=== PATIENT | female | born 1975 | race Caucasian/White ===

== ENCOUNTER 2022-06-13 06:19 | Day surgery (SDC) | payer OTHER, SELFPAY ==
[2022-06-08 16:10] VITALS: BMI 22.0
--- NOTE | 2022-06-09 15:45 | MHC.SHP ---
Pre-Procedural Eval Section A Date of Service: 06/09/22 The patient is an INPATIENT: No Changes since office visit: No Cold of Flu in the past 2 weeks, No New Medical Problems, No Changes in Medication and No Patient answered all questions The History & Physical has been completed within 30 days and I have reviewed it.: Yes Section B Chief Complaint: Age-related nuclear cataract, left eye Allergies: Allergies Allergy/AdvReac Type Severity Reaction Status Date / Time nickel AdvReac Unknown Verified 06/09/22 14:31 Plan Diagnosis/Plan: Unchanged I have reviewed the history and physical and performed a pertinent physical examination on my patient. No changes have occurred unless specified. Time Spent With Patient Time: Total time managing care of this patient today ____ minutes.
[2022-06-13 06:35] VITALS: BP 118/72; PULSE 80; RESP 16; TEMP 36.8; O2SAT 95
[2022-06-13 06:43] LABS: UPreg QC Valid YES; Urine Pregnancy NEGATIVE (NEGATIVE)
[2022-06-13] MEDS: Tetracaine HCl/PF 0.5% Oph Sol 4 ML DROPS 1 DROP EYE-LEFT (06:43)
[2022-06-13] MEDS: Cyclopentolate 1 % Ophth Sol 2 ML DRPBTL 1 DROP EYE-LEFT ×3 (06:44→07:00)
[2022-06-13] MEDS: Tropicamide 1 % Ophth Sol 3 ML BTL 1 DROP EYE-LEFT ×3 (06:46→07:02)
[2022-06-13] MEDS: Ketorolac Tromethamine 0.5% Op 5 ML DROPS 1 DROP EYE-LEFT ×3 (06:48→07:04)
[2022-06-13] MEDS: Phenylephrine HCL 2.5% Oph SoL 2 ML BOTTLE 1 DROP EYE-LEFT ×3 (06:50→07:06)
[2022-06-13] MEDS: Lactated Ringers 500 ML 50 ML IV (06:54)
--- NOTE | 2022-06-13 07:00 | PC.NURSE ---
Patient arrived. Preop SaO2 91-95%. Respirations easy and regular, inspiratory wheezing throughout when lungs auscultated. Patient states I am getting over a sinus infection, I am currently taking antibiotics, last taken yesterday . Patient is a daily smoker. Dr. Crystal at bedside and made aware. Nebulizer treatment ordered. Respiratory at bedside. Treatment tolerated well. SaO2 remains 91-95% post treatment, lung sounds clear, dim throughout. No new orders. Okay to proceed with surgery.
--- NOTE | 2022-06-13 07:25 | HO.PNOPHT ---
Ophthalmology Procedure Procedure Date of Service: 06/13/22 Ophthalmology Viscoelastic: Healnahum Duet Dual Pack Pro Ophthalmology Lenses: TECALON [id number] (21) Procedure Notes: PREOPERATIVE DIAGNOSIS: Decreased visual acuity left eye secondary to cataract POSTOPERATIVE DIAGNOSIS: Same PROCEDURE: Left cataract extraction with intraocular lens insertion SURGEON: Terry Snell M.D. ANESTHESIA: Topical/MAC ESTIMATED BLOOD LOSS: None COMPLICATIONS: None After obtaining informed consent, the patient was brought to the operation room suite and placed in the supine position. After adequate sedation per anesthesia, topical drops of Tetracaine were given to the left eye. The eye was then prepped and draped in the usual sterile fashion. The operating room microscope was then positioned over the operative eye and a lid speculum placed. A paracentesis was created. Viscoelastic was then instilled into the anterior chamber. A three plane incision was then created temporally, utilizing a 2.85 mm keratome. Capsulotomy forceps were then utilized to create a circular tear capsulotomy. Hydrodissection and hydrodelineation were carried out until adequate mobilization of the nucleus occurred. Phacoemulsification was then utilized to remove the dense central nucleus followed by removal of the cortical material utilizing the automated aspiration irrigation unit. Viscoat elastic was instilled into the posterior capsular bag followed by placement of a posterior chamber intraocular lens without difficulty. The residual Viscoat elastic was then removed utilizing the automated IA machine. The wound was check and found to be watertight. The patient tolerated the procedure well and the lid speculum was removed. Intracameral injection of Vigamox 0.1 mL followed by a subtenon injection of Kenalog-40 0.2 mL were administered. The patient will be seen in the a.m.
[2022-06-13] MEDS: Albuterol Sulfate (0.083%) 2.5 MG/3 ML VIAL.NEB INHALE (07:26)
[2022-06-13 07:30] VITALS: PULSE 79; RESP 15; O2SAT 93
--- NOTE | 2022-06-13 07:45 | P.CONAN_ITS ---
Documented by User: Mayank Salinas MD 06/13/22 07:47 HPI - Anesthesia Eval Consult details Narrative: Left eye cataract + IOL PMFSH Past Medical History Medical History Anxiety Back pain Bleeds easily Bruises easily Cataract Chronic, continuous use of opioids Depression Hx of skin cancer, basal cell Hx of squamous cell carcinoma of skin Immune hypersensitivity reaction Nausea PONV (postoperative nausea and vomiting) Smoker Family History Family history of problems with anesthesia: No Surgical History Surgical History History of back surgery History of cholecystectomy Hx of tonsillectomy Social History Social History Are you a primary primary care coordinator to a significant other at home: No Do you presently have visiting nurse or other home services: No Alcohol intake: current Alcohol intake frequency: holidays/special occasions only Patient Tobacco Use Status: Current everyday Tobacco user Tobacco use type: Cigarette Cigarette Packs Per Day: 1 Cigarettes Per Day: 20.0 Years Smoked: 14 Smoked in Last 30 Days: Yes Use of substances other than those prescribed or required for medical reasons: No Have you been hit, kicked, punched, or otherwise hurt by someone within the past year? If so, by whom?: No Are you DNR?: No Advance Directives: No Advance Directives Information Provided: Yes Advance Directives on File: No Recently lost weight without trying: No Nutrition Risks: No Nutritional Risk Patient : No FDLMP: unknown : No Poor oral hygiene: No Meds Allergies Allergy/AdvReac Type Severity Reaction Status Date / Time nickel AdvReac Unknown Verified 06/13/22 06:34 Home Medications Medication Instructions Recorded Confirmed Last Taken Type citalopram 10 mg tablet 10 mg PO DAILY 07/16/20 06/13/22 Unknown History lamotrigine 200 mg disintegrating 200 mg PO DAILY 07/16/20 06/13/22 Unknown History tablet omeprazole 20 mg capsule,delayed 20 mg PO DAILY 06/08/22 06/13/22 Unknown History release ondansetron HCl 4 mg tablet 4 mg PO Q8H PRN nausea/vomiting 06/08/22 06/13/22 Unknown History oxycodone 10 mg tablet 10 mg PO QID PRN Pain 06/08/22 06/13/22 06/13/22 05:00 History amoxicillin 875 mg-potassium 1 tab PO BID 06/13/22 06/13/22 06/12/22 History clavulanate 125 mg tablet cetirizine 10 mg tablet 10 mg PO DAILY 06/13/22 06/13/22 Unknown History dextroamphetamine-amphetamine 5 mg 2 tab PO BID 06/13/22 06/13/22 Unknown History tablet fluticasone propionate 50 1 spray intranasal DAILY 06/13/22 06/13/22 Unknown History mcg/actuation nasal spray,suspension Exam Airway Mallampati Class: II TM Dist: >3cm Loose/Missing/Broken Teeth: Yes Heart: RRR +s1s2 Lungs: CTA after treatment Assessment and Plan Assessment Anesthesia Assessment: Anesthesia Plan Discussed and Chart Reviewed Final Anesthetic Review Family History of Problems with Anesthesia: No Assessment/Block/Sedation in SS: Assess/Block/Sedation-SS Anesthetic Plan Anesthetic Plan: Agree w/ Assess. and Plan Documented by User: Evelyn Crystal MD 06/13/22 07:46 [facility] Active Problems Active Problems: All Active Problems (Updated 06/08/22 @ 16:09 by Rose Shaikh RN) Somatic dysfunction of left sacroiliac joint (Acute) Somatic dysfunction of right sacroiliac joint (Acute) Past Medical History Medical History Anxiety Back pain Bleeds easily Bruises easily Cataract Chronic, continuous use of opioids Depression Hx of skin cancer, basal cell Hx of squamous cell carcinoma of skin Immune hypersensitivity reaction Nausea PONV (postoperative nausea and vomiting) Smoker Surgical History Surgical History History of back surgery History of cholecystectomy Hx of tonsillectomy History of Problems with Anesthesia: No Social History Social History Are you a primary primary care coordinator to a significant other at home: No Do you presently have visiting nurse or other home services: No Alcohol intake: current Alcohol intake frequency: holidays/special occasions only Patient Tobacco Use Status: Current everyday Tobacco user Tobacco use type: Cigarette Cigarette Packs Per Day: 1 Cigarettes Per Day: 20.0 Years Smoked: 14 Smoked in Last 30 Days: Yes Use of substances other than those prescribed or required for medical reasons: No Have you been hit, kicked, punched, or otherwise hurt by someone within the past year? If so, by whom?: No Are you DNR?: No Advance Directives: No Advance Directives Information Provided: Yes Advance Directives on File: No Recently lost weight without trying: No Nutrition Risks: No Nutritional Risk Patient : No FDLMP: unknown : No Poor oral hygiene: No Meds Allergies Allergy/AdvReac Type Severity Reaction Status Date / Time nickel AdvReac Unknown Verified 06/13/22 06:34 Active Medications: Current Medications Lactated Ringer's (Lr) 500 mls @ 50 mls/hr IV .Q10H JAZMIN Stop: 06/13/22 16:29 Last Admin: 06/13/22 06:54 Dose: 50 mls/hr Povidone Iodine (Povidone Iodine 5 % [facility] Soln 30 Ml Bottle) 1 appl EYE-LEFT PREOP PRN PRN Reason: Pre-Op Surgical Implant Prophy Home Medications Medication Instructions Recorded Confirmed Last Taken Type citalopram 10 mg tablet 10 mg PO DAILY 07/16/20 06/13/22 Unknown History lamotrigine 200 mg disintegrating 200 mg PO DAILY 07/16/20 06/13/22 Unknown History tablet omeprazole 20 mg capsule,delayed 20 mg PO DAILY 06/08/22 06/13/22 Unknown History release ondansetron HCl 4 mg tablet 4 mg PO Q8H PRN nausea/vomiting 06/08/22 06/13/22 Unknown History oxycodone 10 mg tablet 10 mg PO QID PRN Pain 06/08/22 06/13/22 06/13/22 05:00 History amoxicillin 875 mg-potassium 1 tab PO BID 06/13/22 06/13/22 06/12/22 History clavulanate 125 mg tablet cetirizine 10 mg tablet 10 mg PO DAILY 06/13/22 06/13/22 Unknown History dextroamphetamine-amphetamine 5 mg 2 tab PO BID 06/13/22 06/13/22 Unknown History tablet fluticasone propionate 50 1 spray intranasal DAILY 06/13/22 06/13/22 Unknown History mcg/actuation nasal spray,suspension Exam Exam Date and Time: June 13, 2022 0745 Height,Weight and Vital Signs: Height 5 ft 8 in Weight 65.771 kg Last Vital Signs Temp 98.2 F 06/13/22 06:35 Pulse 79 06/13/22 07:30 Resp 15 06/13/22 07:30 BP 118/72 06/13/22 06:35 Pulse Ox 95 06/13/22 06:35 O2 Del Method Room Air 06/13/22 06:35 Pertinent Lab Results Pertinent Lab Results: Laboratory Tests 06/13/22 06:23 Urine Test NEGATIVE Airway Mallampati Class: II TM Dist: >3cm Neck ROM: Full Loose/Missing/Broken Teeth: No Heart: RRR Lungs: CTA Assessment and Plan Final Anesthetic Review History of Problems with Anesthesia: No NPO: Yes ASA Class: II Final Preanesthetic Review: Meds/Allgs Chart Reviewed, Consent Obtained/Reviewed and Anes Risks/Benef Reviewed Patient Risk: Low Procedure Risk: Low Anesthetic Plan Anesthetic Plan: MAC: Disposition: Standard PACU
[2022-06-13 08:12] VITALS: BP 114/62; PULSE 81; RESP 16; TEMP 36.2; O2SAT 94
[2022-06-13 08:20] VITALS: BP 101/61; PULSE 80; RESP 16; O2SAT 94
== END 2022-06-13 08:47 | disposition home or self-care (01) ==
PROVIDERS: Nurse Practitioner; PCP Internal Medicine; Visit Provider Ophthalmology
PROC: (CPT 66985; principal; 2022-06-13 07:30)
DX: H25.12 Age-related nuclear cataract, left eye (principal); H54.7 Unspecified visual loss; H21.233 Degeneration of iris (pigmentary), bilateral; M79.7 Fibromyalgia; Z79.891 Long term (current) use of opiate analgesic; R23.3 Spontaneous ecchymoses; Z79.51 Long term (current) use of inhaled steroids; Z79.899 Other long term (current) drug therapy; Z85.828 Personal history of other malignant neoplasm of skin; F17.210 Nicotine dependence, cigarettes, uncomplicated; Z98.890 Other specified postprocedural states
CPT/HCPCS: 66984; 81025; 94640; J2250; J3301; V2632

== ENCOUNTER 2022-06-27 06:27 | Day surgery (SDC) | payer OTHER, SELFPAY ==
[2022-06-08 16:17] VITALS: BMI 22.0
--- NOTE | 2022-06-24 08:00 | MHC.SHP ---
Pre-Procedural Eval Section A Date of Service: 06/24/22 The patient is an INPATIENT: No Changes since office visit: No Cold of Flu in the past 2 weeks, No New Medical Problems, No Changes in Medication and No Patient answered all questions The History & Physical has been completed within 30 days and I have reviewed it.: Yes Section B Chief Complaint: Age-related nuclear cataract, right eye Allergies: Allergies Allergy/AdvReac Type Severity Reaction Status Date / Time nickel AdvReac Unknown Verified 06/13/22 06:34 Plan Diagnosis/Plan: Unchanged I have reviewed the history and physical and performed a pertinent physical examination on my patient. No changes have occurred unless specified. Time Spent With Patient Time: Total time managing care of this patient today ____ minutes.
[2022-06-27] MEDS: Phenylephrine HCL 2.5% Oph SoL 2 ML BOTTLE 1 DROP EYE-RIGHT ×3 (06:45→06:57)
[2022-06-27] MEDS: Tropicamide 1 % Ophth Sol 3 ML BTL 1 DROP EYE-RIGHT ×3 (06:45→06:57)
[2022-06-27] MEDS: Ketorolac Tromethamine 0.5% Op 5 ML DROPS 1 DROP EYE-RIGHT ×3 (06:45→06:57)
[2022-06-27] MEDS: Cyclopentolate 1 % Ophth Sol 2 ML DRPBTL 1 DROP EYE-RIGHT ×3 (06:45→06:57)
[2022-06-27] MEDS: Tetracaine HCl/PF 0.5% Oph Sol 4 ML DROPS 1 DROP EYE-RIGHT (06:45)
[2022-06-27] MEDS: Lactated Ringers 500 ML 50 ML IV (06:46)
[2022-06-27 06:47] LABS: UPreg QC Valid YES; Urine Pregnancy NEGATIVE (NEGATIVE)
[2022-06-27 06:53] VITALS: BP 153/75; PULSE 92; RESP 18; TEMP 36.3; O2SAT 97
--- NOTE | 2022-06-27 07:26 | HO.ANESPROP2 ---
[facility] Active Problems Active Problems: All Active Problems (Updated 06/08/22 @ 16:09 by Rose Shaikh RN) Somatic dysfunction of left sacroiliac joint (Acute) Somatic dysfunction of right sacroiliac joint (Acute) Past Medical History Medical History Anxiety Back pain Bleeds easily Bruises easily Cataract Chronic, continuous use of opioids Depression Hx of skin cancer, basal cell Hx of squamous cell carcinoma of skin Immune hypersensitivity reaction Nausea PONV (postoperative nausea and vomiting) Smoker Family History Family history of problems with anesthesia: No Surgical History Surgical History History of back surgery History of cholecystectomy Hx of tonsillectomy History of Problems with Anesthesia: No Social History Social History Are you a primary clinical care leader to a significant other at home: No Do you presently have visiting nurse or other home services: No Alcohol intake: current Alcohol intake frequency: holidays/special occasions only Patient Tobacco Use Status: Current everyday Tobacco user Tobacco use type: Cigarette Cigarette Packs Per Day: 1 Cigarettes Per Day: 20.0 Years Smoked: 14 Smoked in Last 30 Days: Yes Use of substances other than those prescribed or required for medical reasons: No Have you been hit, kicked, punched, or otherwise hurt by someone within the past year? If so, by whom?: No Are you DNR?: No Advance Directives: No Advance Directives Information Provided: Yes Advance Directives on File: No Recently lost weight without trying: No Nutrition Risks: No Nutritional Risk Patient : No FDLMP: unknown : No Poor oral hygiene: No Meds Allergies Allergy/AdvReac Type Severity Reaction Status Date / Time nickel AdvReac Unknown Verified 06/27/22 07:02 Active Medications: Current Medications Albuterol Sulfate (Albuterol Sulfate (0.083%) 2.5 Mg/3 Ml Vial.Neb) 2.5 mg INHALE ONCE PRN PRN Reason: Shortness of Breath/Wheezing Lactated Ringer's (Lr) 500 mls @ 50 mls/hr IV .Q10H JAZMIN Stop: 06/27/22 16:29 Last Admin: 06/27/22 06:46 Dose: 50 mls/hr Povidone Iodine (Povidone Iodine 5 % Ophth Soln 30 Ml Bottle) 1 appl EYE-RIGHT PREOP PRN PRN Reason: Pre-Op Surgical Implant Prophy Home Medications Medication Instructions Recorded Confirmed Last Taken Type citalopram 10 mg tablet 10 mg PO DAILY 07/16/20 06/13/22 Unknown History lamotrigine 200 mg disintegrating 200 mg PO DAILY 07/16/20 06/13/22 Unknown History tablet omeprazole 20 mg capsule,delayed 20 mg PO DAILY 06/08/22 06/13/22 Unknown History release ondansetron HCl 4 mg tablet 4 mg PO Q8H PRN nausea/vomiting 06/08/22 06/13/22 Unknown History oxycodone 10 mg tablet 10 mg PO QID PRN Pain 06/08/22 06/13/22 06/13/22 05:00 History amoxicillin 875 mg-potassium 1 tab PO BID 06/13/22 06/13/22 06/12/22 History clavulanate 125 mg tablet cetirizine 10 mg tablet 10 mg PO DAILY 06/13/22 06/13/22 Unknown History dextroamphetamine-amphetamine 5 mg 2 tab PO BID 06/13/22 06/13/22 Unknown History tablet fluticasone propionate 50 1 spray intranasal DAILY 06/13/22 06/13/22 Unknown History mcg/actuation nasal spray,suspension Exam Exam Date and Time: June 27, 2022 0726 Height,Weight and Vital Signs: Height 5 ft 8 in Weight 65.771 kg Last Vital Signs Temp 97.3 F 06/27/22 06:53 Pulse 92 06/27/22 06:53 Resp 18 06/27/22 06:53 BP 153/75 H 06/27/22 06:53 Pulse Ox 97 06/27/22 06:53 O2 Del Method Room Air 06/27/22 06:53 Pertinent Lab Results Pertinent Lab Results: Laboratory Tests 06/27/22 06:30 Urine Test NEGATIVE Airway Mallampati Class: II TM Dist: >3cm Neck ROM: Full Loose/Missing/Broken Teeth: No Heart: RRR Lungs: CTA Assessment and Plan Assessment Anesthesia Assessment: Anesthesia Plan Discussed and Chart Reviewed Final Anesthetic Review Family History of Problems with Anesthesia: No History of Problems with Anesthesia: No NPO: Yes ASA Class: II Final Preanesthetic Review: Meds/Allgs Chart Reviewed, Consent Obtained/Reviewed and Anes Risks/Benef Reviewed Patient Risk: Low Procedure Risk: Low Anesthetic Plan Anesthetic Plan: MAC: Disposition: Standard PACU
--- NOTE | 2022-06-27 08:01 | P.PCNO_ITS ---
Ophthalmology Procedure Procedure Date of Service: 06/27/22 Ophthalmology Viscoelastic: Healon Duet Dual Pack Pro Ophthalmology Lenses: TECNIS [id number] (21) Procedure Notes: PREOPERATIVE DIAGNOSIS: Decreased visual acuity right eye secondary to cataract POSTOPERATIVE DIAGNOSIS: Same PROCEDURE: Right cataract extraction with multifocal intraocular lens insertion SURGEON: Terry Senll M.D. ANESTHESIA: Topical/MAC ESTIMATED BLOOD LOSS: None COMPLICATIONS: None After obtaining informed consent, the patient was brought to the operating room suite and placed in the supine position. After adequate sedation per anesthesia, topical drops of Tetracaine were given to the right eye. The eye was then prepped and draped in the usual sterile fashion. The operating room microscope was then positioned over the operative eye and a lid speculum placed. A paracentesis was created. Viscoelastic was then instilled into the anterior chamber. A three plane incision was then created temporally, utilizing a 2.85 mm keratome. Capsulotomy forceps were then utilized to create a circular tear capsulotomy. Hydrodissection and hydrodelineation were carried out until adequate mobilization of the nucleus occurred. Phacoemulsification was then utilized to remove the dense central nucl eus followed by removal of the cortical material utilizing the automated aspiration irrigation unit. Viscoelastic was instilled into the posterior capsular bag followed by placement of a multifocal posterior chamber intraocular lens without difficulty. The residual Viscoelastic was then removed utilizing the automated IA machine. The wound was checked and found to be watertight. The patient tolerated the procedure well and the lid speculum was removed. Intracameral injection of Vigamox 0.1 mL followed by a subtenon injection of Kenalog-40 0.2 mL were administered. The patient will be seen in the a.m.
[2022-06-27 08:31] VITALS: BP 154/77; PULSE 75; RESP 18; TEMP 36.6; O2SAT 98
== END 2022-06-27 08:38 | disposition home or self-care (01) ==
PROVIDERS: Nurse Practitioner; PCP Internal Medicine; Visit Provider Ophthalmology
PROC: (CPT 66984; principal; 2022-06-27 08:00)
DX: H25.041 Posterior subcapsular polar age-related cataract, right eye (principal); H54.7 Unspecified visual loss; H21.233 Degeneration of iris (pigmentary), bilateral; M79.7 Fibromyalgia; F17.210 Nicotine dependence, cigarettes, uncomplicated; Z79.899 Other long term (current) drug therapy
CPT/HCPCS: 66984; 81025; J2250; J3010; J3301; V2788

== ENCOUNTER 2024-01-09 09:09 | Outpatient (AMB) | payer OTHER, SELFPAY ==
[2024-01-09 09:20] VITALS: BP 122/68; PULSE 97; O2SAT 98; BMI 26.5
--- NOTE | 2024-01-09 09:20 | A.OFFVIS_ITS ---
Vital Signs 01/09/24 09:20 Height 5 ft 8 in Weight 174 lb 2.643 oz BMI 26.5 BP 122/68 Blood Pressure Location Lt brachial Position Sitting Pulse 97 Pulse Source Pulse Oximeter Pulse Oximetry (%) 98 Oxygen Delivery Method Room Air Intake Visit Reasons: Sarcoid arthritis/MR RECIEVED Intake Note: Patient presents today for sarcoid arthritis. Patient was last seen on 12/07/23 by Shankar Lindsay at the [facility]. Allergies citalopram [From Celexa] Allergy (Unknown, Unverified 01/08/24 10:33) Hives nickel Adverse Reaction (Verified 01/08/24 10:33) Unknown HPI Comments Details: Inflectra has not improved pain in her joints: ankles, feet, hips. Last I nflectra dose was a week ago. She has not had as many flares of joint swelling as she has in the past. She reports that her pain is the same. She is on Inflectra 3 milligram/kilogram every 4 weeks. She denies recent infections. She received a prednisone course when she saw Dr. Rodriguez She recently had an episode of joint swelling in her ankles causing excruciating pain. She reports that this coincides with starting losartan. She called her PCP and did not receive a call back. Her mother gave her Lasix, which she took 20 mg for 2 days without benefit. Then she increase the dose to 40 mg twice a day with resolution of joint swelling and pain subsiding to her baseline ankle pain. She is experiencing pain secondary to right trochanteric bursitis, which she has had for 4 years.. She is due for cortisone injection from [facility] in 2 weeks. She has been getting cortisone injections for 4 years but the benefit is not lasting as long. Pain from trochanteric bursitis is preventing patient from sitting, lying down and standing for prolonged periods of time. She has uncontrolled pain when she sitting for more than 15 minutes limiting her function. She has history of lumbar degenerative joint disease requiring fusion in 1993. She also had a spinal stimulator in 05/10/2019. She is unable to stand for prolonged periods of time due to uncontrolled back pain. She has difficulty with functioning due to overall uncontrolled pain. She has been experiencing easily bruising. PCP is working with patient on psychiatric medication management, which has resulted in drug-induced bruising in the past. [facility] reviewed. Rheumatology history: History of diagnosis of polyarthritis previously treated by Dr. Callahan and failed treatment with methotrexate, Enbrel and Humira. She was diagnosed with sarcoidosis with lung involvement and continues to have inflammatory arthritis mainly involving joint swelling in bilateral knees, ankles and feet. Clinical picture of inflammatory arthritis can represent sarcoid related arthropathy. She was started on Inflectra 2023. She has history of steatohepatitis with transaminitis. She has history of fibromyalgia on gabapentin. PFSH Medical History Anxiety Back pain Bleeds easily Bruises easily Cataract Chronic, continuous use of opioids Depression Hx of skin cancer, basal cell Hx of squamous cell carcinoma of skin Immune hypersensitivity reaction Nausea PONV (postoperative nausea and vomiting) Smoker Surgical History History of back surgery History of cholecystectomy Hx of tonsillectomy Social History Are you a primary vehicle care specialist to a significant other at home: No Do you presently have visiting nurse or other home services: No Alcohol intake: current Alcohol intake frequency: holidays/special occasions only Patient Tobacco Use Status: Current everyday Tobacco user Tobacco use type: Cigarette Cigarette Packs Per Day: 1 Cigarettes Per Day: 20.0 Years Smoked: 14 Review of Systems Const All systems reviewed & are unremarkable except as noted in HPI and below Physical Exam Vital Signs: Last Vital Signs Pulse 97 01/09/24 09:20 BP 122/68 01/09/24 09:20 Pulse Ox 98 01/09/24 09:20 Oxygen Delivery Method Room Air 01/09/24 09:20 BMI result Body Mass Index 26.5 Resp Effort & Inspection: normal respiratory effort Cardio Rate: regular rate Rhythm: regular rhythm Heart sounds: S1 normal heart sound present and S2 normal heart sound present Skin Other: Bruising present on arms Extrem Other: Diffuse allodynia Tender to palpate bilateral ankles, MTPs, knees, small joints and hands. She has swelling of bilateral knees. Results Reviewed Results Reviewed: 06/10/2023, 07/28/2023 reviewed Assessment & Plan Assessment & Plan (1) Sarcoid arthritis: Comment: Synovitis has improved on Inflectra but pain is uncontrolled. She is also experiencing concurrent pain from fibromyalgia, which needs to be better controlled. Code(s): D86.86 - Sarcoid arthropathy Category: Medical Plan: Increase Inflectra to 5 milligram/kilogram every 4 weeks Labs ordered for drug and disease monitoring Return to clinic in 3 months (2) Other detention (current) drug therapy: Comment: See above Code(s): Z79.899 - Other detention (current) drug therapy Category: Medical Plan: See above (3) Fibromyalgia: Comment: Uncontrolled on gabapentin 300 mg q.day. Code(s): M79.7 - Fibromyalgia Category: Medical Plan: Recommend PCP follow-up for better management of gabapentin with up titration as she tolerates. Consider adjunct therapy with cyclobenzaprine or amitriptyline Contraindication to oral NSAIDs due to bruising Contraindication to Tylenol due to transaminitis Plan . 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 therapy Alanine Aminotransferase Today D86.86 - Sarcoid arthropathy, Z79.899 - Other longwall machine operator helper (current) drug therapy Aspartate Amino Transferase Today D86.86 - Sarcoid arthropathy, Z79.899 - Other longwall machine operator helper (current) drug therapy C Reactive Protein Today D86.86 - Sarcoid arthropathy, Z79.899 - Other detention (current) drug therapy Complete Blood Count Auto Diff Today D86.86 - Sarcoid arthropathy, Z79.899 - Other longwall machine operator helper (current) drug therapy Hepatitis B,C Profile Today D86.86 - Sarcoid arthropathy, Z79.899 - Other detention (current) drug therapy Referrals Infusion Center Notification D86.86 - Sarcoid arthropathy Coding Level of Care Code Est Pt Level 4 (30280) Complex EM visit Add On G2211 Diagnoses Sarcoid arthritis D86.86 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
== END 2024-01-09 10:09 | disposition home or self-care (01) ==
PROVIDERS: PCP Internal Medicine; Visit Provider Internal Medicine Rheumatology
DX: D86.86 Sarcoid arthropathy (principal); Z79.899 Other long term (current) drug therapy; M79.7 Fibromyalgia
CPT/HCPCS: 99214

== ENCOUNTER 2024-04-10 09:31 | Outpatient (AMB) | payer OTHER, SELFPAY ==
--- OUTSIDE RECORDS SUMMARY | 2024-04-10 09:49 | XMS_ITS | Continuity of Care Document ---
Author Organization [place] - [facility] 3rd floor Address [address] [place] [address] Care Team Providers Care Grappler Name Role Phone CAROLYN HERNÁNDEZ Primary Care Provider [phone] Assessment No assessment recorded. Plan of Treatment Reminders Order Date Submit Date Provider Last Modified By Organization Details Last Modified Time Details Appointments RECHECK 15 2024 08:45A M Twan Serna MD Not available Not available Not available INJECTION ONLY 15 2024 03:15P Lauren saldivar PA-C Not available Not available Not available Lab None recorded. Referral None recorded. Procedures nerve conductio n study/EMG , lower extremity (PROC) - BLE 2024 [address]25 [place] [address] [facility], [address] [place] [address], [address], 03/27/2024 16:54:26 Surgeries None recorded. Imaging MRI, pelvis, w/wo contrast - MRI pelvis with and without contrast -hx of fusion - eval SI joint [address] [facility]), [address], [place], [address], 03/27/2024 16:54:26 XR, lumbar spine, 2 view - 317 l spine 2v 2024 025 [place] [address] [facility], [address], [place], [address], 03/27/2024 16:54:26 Medication Orders oxycodone 5 mg tablet 2024 025 [id number], [address] [facility], [place], [address], 03/27/2024 16:03:42 Patient TargetsNo targets recorded. Patient InstructionsNo instructions recorded. Reason for Referral None Reported. Results Created Date Observation Date Name Description Value Unit Range Abnormal Flag Note LastModifiedBy Organization Detail LastModifiedTime 03/10/1903/09/2024 MRI, lumba r spine , w/wo contr ast [facility] Access ion Number : [id number] Patien t Name: Yasmany Trotter Medica l Record Number : [id number] Date of : 1975 Date of Exam: 2024 Referr ing Physic amador: [facility] [address], [address] [facility], [facility] [address] Exam: MR Lumbar Spine (C-/C+ ) CPT 12243 Room Descri ption: [facility] Verio 3.0T MRI of the lumbar spine withou t and with contra st. HISTOR Y: Bilate ral arm and leg pain. Bilate ral leg parest hesia. Status post prior lumbar fusion surger y. COMPAR BERNARDO: 022. FINDIN GS: The conus medull iman has a normal calibe r and signal intens ities. It termin ates at L1-L2 level. No abnorm al enhanc ement There is a minima l marcia listhe sis of L5 over S1. No verteb ral body fractu re is seen. The bone marrow signal s are within normal limits . L4-L5 and L5-S1 levels have disc desicc ation and disc space narrow ing. The parasp inal muscle s from L4-L5 level to visual ized upper sacral region appear absent with fatty replac ement which are due to postsu rgical change s. T12-L1 level has a tiny right parace ntral disc protru rishi. No stenos is or neural forame n narrow ing. L1-L2 level has no disc hernia tion, stenos is or neural forame n narrow ing. Bilate ral facet joints are mildly degene rative . L2-L3 level has no disc hernia tion, stenos is or neural forame n narrow ing. Bilate ral facet joints are mildly degene rative . L3-L4 level has a minima l disc bulge causin g minima l stenos is. No nerve root compre ssion. Bilate ral ligame ntum flavum are mildly hypert rophic . The facet joints are mildly degene rative . No neural forame n narrow ing. Bilate ral parasp inal muscle s are partia lly atroph ic with fatty replac ement. 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 L4-L5 and L5-S1 levels had prior bilate ral ely ctomie s with decomp ressio n of the spinal canal. No signif icant ventra l epidur al enhanc ing scar. No disc hernia tion, stenos is or nerve root compre ssion. Bilate ral facet joints are degrad ed by suscep tibili ty artifa cts due to surgic al hardwa re from prior fusion surger y. No neural forame n narrow ing. The visual ized abdomi nal aorta and kidney s are unrema rkable . IMPRES RISHI: Product Responsibility Liaison ior surgic al change s at the lower lumbar spine as descri bed above. The findin gs remain unchan ged since prior study. Electr onical ly Signed By: Eugene Avalos MD [email or web address] [facility] ([facility]) [address] [facility], [place], [address], 03/29/2024 08:32:02 03/27/19 25 03/27/2024 XR, lumba r spine , 2 view [email or web address]:/ [email or web address] ?Encry pted=s hAaTro YD8dLq bEUv6g %2BXZw aYqtaq 0bqfl% 2Fg9IQ a4ajBk vP9nXo QUaueC m3YtLR FvZlgJ JJ8mAn HZtai3 8p4419 AC0Kqb HmNWKK vKiQtr MwF INTERFACE [facility] [address], [place], [address], 03/27/2024 15:22:53 03/27/1903/27/2024 XR, lumba r spine , 2 view [email or web address]:/ [email or web address] ?Encry pted=s hAaTro YD8dLq bEUv6g %2BXZw aYqtaq 0bqfl% 2Fg9IQ a4ajBk vP9nXo QUaueC m3YtLR FvZlgJ JJ8mAn HZtai3 4v9333 AC0Kqb HmNWKK vKiQtr MwF INTERFACE [facility] [address], [place], [address], 03/27/2024 15:22:55 Result Notes None recorded. Problems Name Problem SNOMED Code Status Onset Date Resolution Date Notes Provider Name and Address Organization Details Recorded Time No complaints 053221793 Active Status : 'A'; Not Available [facility] 4 09:21:35 Bilateral chronic pain of upper limbs 0676833120894 9106 Active 2024 Mary Ann Montanez PA-C [address], [place], [address] , [facility] 5 16:27:55 Partial thickness rotator cuff tear 977746202 Active 2023 Mary Ann Montanez PA-C [address], [place], [address] , [facility] 4 14:12:34 Pain of joint of knee 5596352544 Active 2023 PRIMITIVO franklin [place] - [facility] 4 12:46:40 Trochanter ic bursitis of right hip 9123842535073 00 Active 2023 Ankit France PA-C [address], [place], [address] , [facility] 4 09:54:58 Trochanter ic bursitis of left hip 5753949307690 03 Active 2023 Ankit France PA-C [address] [facility], [place], [address] , [facility] 09:55:03 Problem Notes None recorded. Procedures Surgical History Date Name Laterality Status Provider Name and Address Organization Details Recorded Time 03/06/19 25 JZHip Inj Fernandez completed Ankit France PA-C [address], [place], [address], [facility] 03/06/2024 08:49:50 03/04/19 25 Sports Shoulder Bilateral completed Mary Ann Montanez PA-C [address], [place], [address], [facility] 03/20/2024 10:42:32 01/22/20 24 JZHip Fernandez completed Ankit France PA-C [address], [place], [address], [facility] 01/22/2024 09:35:30 11/21/19 24 Shoulder Kenalog 2cc Injection, Bilateral completed Mary Ann Montanez PA-C [address], [place], [address], [facility] 11/21/2023 14:09:51 11/15/19 24 JZHip Inj Fernandez active Ankit France PA-C [address], [place], [address], [facility] 11/15/2023 12:13:53 11/02/19 24 JZHip US Fernandez completed Ankit France PA-C [address], [place], [address], [facility] 11/02/2023 13:50:21 09/05/19 24 JZHip US Fernandez completed Ankit France PA-C [address], [place], [address], [facility] 09/05/2023 14:48:49 09/04/19 24 Knee Kenalog 40 1cc Injection, Bilateral completed Mary Ann Montanez PA-C [address], [place], [address], [facility] 09/04/2023 14:55:12 08/22/19 24 Shoulder Kenalog 2cc Injection, Bilateral completed Mary Ann Montanez PA-C [address], [place], [address], [facility] 08/22/2023 13:50:04 06/15/19 24 JZHip Inj Fernandez completed Ankit France PA-C [address], [place], [address], [facility] 06/15/2023 09:54:49 05/23/19 24 Knee Kenalog 40 1cc Injection, Bilateral completed Mary Ann Montanez PA-C [address], [place], [address], [facility] 05/23/2023 13:34:03 05/09/19 24 Large Joint Asp/Inj, Bilateral Kenalog 1cc completed Mary Ann Montanez PA-C [address], [place], [address], [facility] 05/09/2023 14:15:23 Spine Surgery completed PRIMITIVO EATON [facility] 03/04/2024 16:05:54 lumbar spinal fusion completed PRIMITIVO EATON [facility] 05/09/2023 08:27:21 removal of implant completed PRIMITIVO EATON [facility] 05/09/2023 08:27:49 removal of spinal neurostimulator completed PRIMITIVO EATON [facility] 05/09/2023 08:28:16 implantation of neurostimulator in spine completed PRIMITIVO EATON [facility] 05/09/2023 08:28:56 cataract surgery completed PRIMITIVO EATON [facility] 05/09/2023 11:32:40 Imaging Results None recorded. Procedure Notes None recorded. Medical Equipment None Reported. Allergies Allergen ID Allergen Name Allergen Category Reaction Reaction Severity Criticality Documentation Date Start Date Code Code System Note Provider Name and Address Organization Details Recorded Time 680559 nickel environme nt,medica tion Not available Not available Not available 04/24/20232021 51022 29 RxNorm Not Available [facility] 16:01:34 Medications Name Sig Start Date Stop Date Status Note LastModified by Organization Details LastModified Time losartan 50 mg tablet TAKE 1 TABLET BY MOUTH EVERY DAY active Not Available Not Available No t Available nystatin 100,000 unit/mL oral suspension SWISH AND SWALLOW 5 ML BY MOUTH 4 TIMES A DAY,X7 DAYS 08/21 completed Not Available Not Available Not Available venlafaxine ER 37.5 mg capsule,ext ended release 24 hr TAKE 1 CAPSULE BY MOUTH EVERY DAY 08/21 completed Not Available Not Available Not Available prednisone 10 mg tablet PLEASE SEE ATTACHED FOR DETAILED DIRECTION S 03/27 completed Not Available Not Available Not Available paroxetine 10 mg tablet TAKE 1 TABLET BY MOUTH EVERY DAY 02/07 completed Not Available Not Available Not Available nicotine 14 mg/24 hr daily transdermal patch APPLY 1 PATCH TOPICALLY DAILY 08/21 completed Not Available Not Available Not Available cetirizine 10 mg tablet TAKE 1 TABLET BY MOUTH EVERY DAY 08/21 completed Not Available Not Available Not Available nicotine (polacrilex ) 2 mg gum CHEW 1 GUM EVERY 4 HOURS NEEDED FOR SMOKING CESSATION 08/21 completed Not Available Not Available Not Available tizanidine 4 mg tablet TAKE 1 TABLET BY MOUTH THREE TIMES A DAY 01/18 completed Not Available Not Available Not Available citalopram 10 mg tablet TAKE 1 TABLET BY MOUTH EVERY DAY 08/21 completed Not Available Not Available Not Available senna 8.6 mg tablet 08/21 completed Not Available Not Available Not Available meloxicam 15 mg tablet TAKE 1 TABLET BY MOUTH EVERY DAY 08/21 completed Not Available Not Available Not Available ondansetron HCl 4 mg tablet TAKE 1 TABLET BY MOUTH EVERY 8 HOURS NEEDED FOR NAUSEA AND VOMITING active Not Available Not Available No t Available prednisone 20 mg tablet active Not Available Not Available Not Available prednisone 5 mg tablet PLEASE SEE ATTACHED FOR DETAILED DIRECTION S 03/27 completed Not Available Not Available Not Available Remicade 100 mg intravenous solution Inject by intraveno us route. 03/27 completed Not Available Not Available Not Available omeprazole 40 mg capsule,del ayed release TAKE 1 CAPSULE BY MOUTH EVERY DAY active Not Available Not Available No t Available aspirin 81 mg tablet,julieta yed release 08/21 completed Not Available Not Available Not Available triamcinolo ne acetonide 0.1 % topical cream APPLY TWICE A DAY TO RASH ON EXTREMITI ES FOR 2 WEEKS, TAKE 1 WEEK OFF, REPEAT NEEDED 08/21 completed Not Available Not Available Not Available oxycodone 15 mg tablet TAKE 1 TABLET BY MOUTH EVERY 6 HOURS NEEDED FOR PAIN active Not Available Not Available No t Available Kenalog 40 mg/mL suspension for injection Take 1 mL by injection route. 08/21 completed Not Available Not Available Not Available hydromorpho ne 2 mg tablet 08/21 completed Not Available Not Available Not Available citalopram 20 mg tablet TAKE 1 TABLET BY MOUTH EVERY DAY 08/21 completed Not Available Not Available Not Available amitriptyli ne 10 mg tablet TAKE 1 TABLET BY MOUTH EVERYDAY AT BEDTIME 01/18 completed Not Available Not Available Not Available paroxetine 20 mg tablet TAKE 1 TABLET BY MOUTH EVERY DAY 02/07 completed Not Available Not Available Not Available pseudoephed rine-guaife nesin ER 80-700 mg tablet,exte nded release 1-[address] painDO NOT DRIVE WHILE TAKING THIS MEDICATIO N 05/04 completed Statu s: 'Disc ontin ued'; Not Available Not Available Not Available prednisone 50 mg tablet TAKE 1 TABLET BY MOUTH EVERY DAY FOR 5 DAYS 08/21 completed Not Available Not Available Not Available losartan 25 mg tablet TAKE 1 TABLET BY MOUTH EVERY DAY 02/07 completed Not Available Not Available Not Available venlafaxine 50 mg tablet TAKE 1 TABLET BY MOUTH EVERY DAY 01/18 completed Not Available Not Available Not Available gabapentin 300 mg capsule TAKE 1 CAPSULE BY MOUTH TWICE A DAY active Not Available Not Available No t Available sertraline 25 mg tablet TAKE 1 TABLET BY MOUTH EVERY DAY 08/21 completed Not Available Not Available Not Available diclofenac sodium 75 mg tablet,julieta yed release Take 1 tablet twice a day by oral route for 30 days. 01/18 completed Not Available Not Available Not Available gabapentin 100 mg capsule TAKE 1 TAB AT BEDTIME X1 WEEK THEN INCREASE TO 1 TAB TWICE A DAY X 1 WEEK THEN 1 TAB 3X A DAY 02/07 completed Not Available Not Available Not Available lorazepam 1 mg tablet TAKE 1 TABLET BY MOUTH ONCE 30-60 MINUTES PRIOR TO PET/CT 08/21 completed Not Available Not Available Not Available levofloxaci n 500 mg tablet TAKE 1 TABLET BY MOUTH EVERY 24 HOURS FOR 4 DAYS 01/18 completed Not Available Not Available Not Available methylpredn isolone 4 mg tablets in a dose pack TAKE 6 TABLETS ON DAY 1 DIRECTED ON PACKAGE AND DECREASE BY 1 TAB EACH DAY FOR A TOTAL OF 6 DAYS 08/21 completed Not Available Not Available Not Available albuterol sulfate HFA 90 mcg/actuati on aerosol inhaler active Not Available Not Available Not Available fluticasone propionate 50 mcg/actuati on nasal spray,suspe nsion SPRAY 2 SPRAYS INTRANASA LLY DAILY FOR 10 DAYS 08/21 completed Not Available Not Available Not Available dextroamphe tamine-amph etamine 5 mg tablet TAKE 2 TABLETS BY MOUTH TWICE A DAY FOR 28 DAYS active Not Available Not Available No t Available amoxicillin 875 mg-potassiu m clavulanate 125 mg tablet TAKE 1 TABLET BY MOUTH TWICE A DAY FOR 7 DAYS 03/27 completed Not Available Not Available Not Available oxycodone 5 mg tablet TAKE 1 TABLET EVERY 6 HOURS BY ORAL ROUTE WITH MEAL(S) FOR 7 DAYS, FOR BREAKTHRO UGH PAIN AFTER FALL. active Not Available Not Available No t Available hydroxyzine pamoate 25 mg capsule TAKE 1 CAPSULE BY MOUTH 4 TIMES A DAY NEEDED FOR ANXIETY 02/07 completed Not Available Not Available Not Available neomycin 3.5 mg/g-polymy mignon B 10,000 unit/g-dexa meth 0.1 % eye oint APPLY 1/4 INCH STRIP TO LEFT EYE THREE TIMES A DAY FOR 5-7 DAYS 08/21 completed Not Available Not Available Not Available bupropion HCl XL 150 mg 24 hr tablet, extended release TAKE 1 TABLET BY MOUTH EVERY 24 HOURS 08/21 completed Not Available Not Available Not Available duloxetine 20 mg capsule,del ayed release TAKE 1 CAPSULE BY MOUTH TWICE A DAY 01/18 completed Not Available Not Available Not Available meloxicam 01/18 completed Not Available Not Available Not Available oxycodone 10 mg tablet TAKE 1 TABLET BY MOUTH EVERY 6 HOURS, NEEDED FOR PAIN 02/07 completed Not Available Not Available Not Available oxycodone HCl-oxycodo ne-ASA oxyCODONE HCl 5MG Tablet 05/04 completed Statu s: 'Disc ontin ued'; Not Available Not Available Not Available lamotrigine ER 200 mg tablet,exte nded release 24 hr TAKE 1 TABLET BY MOUTH EVERY DAY active Not Available Not Available No t Available GaviLyte-G 236 gram-22.74 gram-6.74 gram-5.86 gram oral solution DRINK 1ST HALF AT 5PM EVENING BEFORE AND 2ND HALF 6 HOURS BEFORE PROCEDURE , 240ML EVERY 15 MINUTES 03/27 completed Not Available Not Available Not Available Vitals Date Recorded Body height Body mass index (BMI) Body weight Provider Name and Address Organization Details Last Updated DateTime 03/27/2024 172.72 cm 24.3 kg/m2 73568.78 g Felecia garcia [facility] 03/27/2024 15:17:16 Social History Question Answer Notes LastModified by Organizat ion Details LastModified Time Tobacco Smoking Status Current Every Day Smoker PRIMITIVO franklin [facility] 05/09/2023 08:27:10 What Is Your Level Of Alcohol Consumption? Occasional Information not available 05/09/2023 Do You Use Any Illicit Or Recreational Drugs? No [email or web address] Information not available 05/09/2023 Do You Or Have You Ever Used Any Other Forms Of Tobacco Or Nicotine? No [email or web address] Information not available 05/09/2023 Sex: Unknown Functional Status None recorded. Mental Status None recorded. Family History Relationship Description Onset Age of this Age Resolved Age Notes LastModified by Organization Details LastModified Time Father Malignant tumor of colon [email or web address] Not available 2023 08:26:28 Father Type 2 diabetes mellitus [email or web address] Not available 2023 08:26:48 Medical History Condition Response Anxiety/Depression Y Arthritis Y Acid Reflux (GERD) Y Gynecological HistoryNo gynecological history recorded. Obstetrics History GPAL:G 0 P 0 0 0 0 Past Encounters Encounter ID Performer Location Encounter Start Date Encounter Closed Date Diagnosis/Indication Diagnosis SNOMED-CT Code Diagnosis ICD10 Code Diagnosis Note [id number] Mary Ann Montanez PA-C [facility] [address] [place] [address] 03/04/2024 16:01:22 03/20/2024 11:28:20 Bilateral chronic pain of upper limbs 9634928383 7329923 M25.511 M25.512 G89.29 [id number] Ankit France PA-C [facility] [address] [place] [address] 03/06/2024 08:12:14 03/18/2024 11:21:09 Trochanteric bursitis of left hip 1458754198 27450 M70.62 Trochanter ic bursitis of right hip 6629687784 58046 M70.61 Lumbar spondylosis 32562 0009 M47.431 [id number] Kandy Davies, SYSTEM OPERATOR [facility] [address] [place] [address] 03/27/2024 15:07:52 03/27/2024 18:05:32 Low back pain 573135320 M54.59 Lumbar radiculopathy 128 841059 M54.16 Health Concerns Section Related Observation LastModified by Organization Detai ls LastModified Time None Recorded Concern Status LastModified by Organization Details LastModified Time None Recorded Payers Encounter Date Sequence Insurance Name Policy Number Policy De Paz Covered Member ID De Paz Member ID Guarantor Name 03/27/2024 1 [facility] Ankit Soto Leakey [id number] Edwige Williamson Notes Date Note Type Note Provider Name and Address Organization Details Recorded Time 03/27/2024 text/html I am seeing the patient under the general supervision of Dr. Rosa who was available but who did not see the patient. HPI: 48-year-old female with postlaminectomy syndrome status post implant and explantation of a spinal cord stimulator. Has developed sarcoidosis. Treated elsewhere and heading to [place] for further care. Applying for SSI. Getting infusion care presently. Interested in help with her SSI application. 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 Last saw Dr. Serna 02/08/2024. Also sees Bhupinder France and recently had bilateral greater trochanter bursitis injections on 03/06/2024, which helped hips a little. Bhupinder also ordered a lumbar spine MRI, which she is here to review. She reports severe pain all over after a fall on black ice 03/22/2024. Has swelling in her low back musculature/soft tissues and down posterior legs. No new BB or saddle anesthesia. PFMSH and ROS have been reviewed, updated, and it is located in the patient's chart. PRIOR TREATMENTS/MEDICATION S: oxycodone WORK STATUS: MSK EXAM: examination of the lumbar spineInspection:--- generalized edema and faint redness to soft tissues/muscles bilateral lower back and posterior thighs.ROM:--- Lumbar spine: 70% normalLower extremity strength:--- LLE 5/5--- RLE 5/5Neurologic:--- Positive sensation to light moving touch IMAGING: X rays ordered, obtained, and independently reviewed at [facility] today. 2 views lumbar spine reveals diffuse spondylosis. Facet arthropathy and thin bone quality.- MRI lumbar spine dated 03/09/2024 independently reviewed by myself today reveals diffuse degenerative changes. Multiple levels with minimal disc bulges without significant stenosis. Post-surgical changes L3-L4 L4-L5 L5-S1 no significant disc herniation, canal stenosis, foraminal stenosis, or nerve compression. Relatively unchanged compared to prior study per radiologist. IMPRESSION & PLAN: Findings discussed with the patient today.- lumbar spine MRI overall unremarkable and non-surgical.- ordered MRI pelvis to further evaluate SI joints due to patient's concern and symptoms.- EMG BLE at [facility] ordered to further evaluate leg symptoms, not fully explained by MRI- She is on chronic oxycodone from PCP. Reports pain is severe and debilitating, PCP has not gotten back to her about increasing it. She is tearful. Will send one-time oxycodone for breakthrough pain.- she is currently on prednisone course.- recommended follow up with her regulator operator regarding sarcoidosis and her severe pain that seems out of proportion to a fall, and a relatively negative MRI. FOLLOW UP: as scheduled with Dr. Srena 04/17/2024 Speech recognition tennis racket repairer software was used to create portions of this document. An attempt at proofreading has been made to minimize errors. Please call for corrections. Kandy Davies, SYSTEM OPERATOR [address] [facility] [address], [place], [address], [facility] [place] 03/27/2024 18:05:30 OBGyn Episode No OBEpisode recorded.
--- OUTSIDE RECORDS SUMMARY | 2024-04-10 09:49 | XMS_ITS ---
Author Name [facility] Organization Unknown History of Medication Use Medication Directions Dispensed Refills Start Date End Date Stat us oxyCODONE (ROXICODONE) 10 mg immediate release tablet TAKE 1 TABLET BY MOUTH EVERY 6 HOURS FOR 28 DAYS NEEDED FOR MODERATE PAIN 07/07/2022 active ibuprofen (MOTRIN) 200 MG tablet Take 4 tablets (800 mg total) by mouth 2 (two) times a day as needed for mild pain. active amphetamine-dextroam phetamine (ADDERALL) 5 MG tablet 2 (two) times a day. 07/07/2022 active HYDROmorphone (DILAUDID) 2 MG tablet Take 1-2 tablets (2-4 mg total) by mouth Every 4 (four) to 6 (six) hours as needed for severe pain. Max Daily Amount: 24 mg 08/16/2022 08/17/2022 aborted ondansetron (ZOFRAN) 4 MG tablet Take 1 tablet (4 mg total) by mouth. 08/05/2022 active aspirin enteric coated (ECOTRIN LOW STRENGTH) 81 MG EC tablet Take 1 tablet (81 mg total) by mouth 2 (two) times a day. Do not start before August 17, 2022. 08/17/2022 active OMEprazole (PriLOSEC) 20 MG capsule Take 1 capsule (20 mg total) by mouth every morning before breakfast. active Problems Problem Status Onset Date Problem Type Date of Resolution Source Tobacco use active 2022-08-04 ProblemAct [facility] Mechanical complication of orthopedic internal fixation device active 2022-08-03 ProblemAct [facility] Midline low back pain without sciatica, unspecified chronicity active EncounterDiagnosisAct [facility] Post traumatic stress disorder (PTSD) active 2022-08-04 ProblemAct [facility] Other mechanical complication of internal fixation device of vertebrae, subsequent encounter active 2022-08-16 ProblemAct [facility] Nicotine dependence active 2022-08-03 ProblemAct [facility] Pain active EncounterDiagnosisAct [facility] Hyperlipidemia active 2022-08-[address] ADHD (attention deficit hyperactivity disorder) active 2022-08-04 ProblemAct [facility] Alcohol use active 2022-08-05 ProblemAct [facility] Allergy to metal active 2022-08-04 ProblemAct [facility] Basal cell carcinoma active 2022-08-04 ProblemAct [facility]
--- OUTSIDE RECORDS SUMMARY | 2024-04-10 09:49 | XMS_ITS | Clinical Summary ---
Author Organization [facility] Address [address] [place] [address] Care Team Providers Care Sampler Radioactive Waste Name Role Phone Liliane Benitez MD Primary Care Provider [phone] Soham Zamarripa MD Unavailable [phone] Allergies Active Allergy Reactions Criticality Noted Date Comments Nickel Rash/Dermatitis Low 08/01/2022 Blisters, severe pain Medications Medication Sig Dispensed Refills Start Date End Date Status lamoTRIgine ER 200 MG Tablet SR 24 hr Take 1 tablet by mouth every morning. 07/08/2022 Active amphetamine-dextroamph etamine (ADDERALL) 5 MG tablet 2 (two) times a day. 07/07/2022 Active citalopram (CeleXA) 10 MG tablet Take 1 tablet (10 mg total) by mouth every morning. Active ibuprofen (MOTRIN) 200 MG tablet Take 4 tablets (800 mg total) by mouth 2 (two) times a day as needed for mild pain. Active OMEprazole (PriLOSEC) 20 MG capsule Take 1 capsule (20 mg total) by mouth every morning before breakfast. Active ondansetron (ZOFRAN) 4 MG tablet Take 1 tablet (4 mg total) by mouth. 08/05/2022 Active aspirin enteric coated (ECOTRIN LOW STRENGTH) 81 MG EC tabletIndications:Othe r mechanical complication of internal fixation device of vertebrae, initial encounter Take 1 tablet (81 mg total) by mouth 2 (two) times a day. Do not start before August 17, 2022. 60 tablet 08/17/2022 Active senna (SENOKOT) 8.6 MG Tab tabletIndications:Othe r mechanical complication of internal fixation device of vertebrae, initial encounter Take 2 tablets by mouth daily as needed for constipation. 60 tablet 08/16/2022 Active oxyCODONE (ROXICODONE) 5 MG immediate release tabletIndications:Othe r mechanical complication of internal fixation device of vertebrae, initial encounter Take 1-2 tablets (5-10 mg total) by mouth every 4 (four) hours as needed for severe pain. Take 1-2 tabs by mouth every 4-6 hours as needed for pain. This is a 1 week supply. Max Daily Amount: 60 mg 40 tablet 08/24/2022 Active Active Problems Problem Noted Date Diagnosed Date Other mechanical complicatio n of internal fixation device of vertebrae, subsequent encounter 08/16/2022 Alcohol use 08/05/2022 Assessment & Plan (08/05/2022 2:54 PM EDT): Currently consumes 2 drinks a day. Plans on stopping prior to surgery. Monitor perioperatively. Basal cell carcinoma 08/04/2022 08/04/2022 Assessment & Plan (08/05/2022 1:27 PM EDT): Located in numerous locations. S/P surgical removal. ADHD (attention deficit hyperactivity disorder) 08/04/2022 08/04/2022 Assessment & Plan (08/05/2022 2:06 PM EDT): Well controlled on adderall 10 mg bid. Hold the day of surgery. Hyperlipidemia 08/04/2022 08/04/2022 Assessment & Plan (08/05/2022 1:28 PM EDT): Not currently on medication. Post traumatic stress disorder (PTSD) 08/04/2022 08/04/2022 Assessment & Plan (08/05/2022 1:05 PM EDT): Stable. Currently on citalopram 10 mg daily and lamotrigine 200 mg daily- take the day of surgery. Tobacco use 08/04/2022 08/04/2022 Allergy to metal 08/04/2022 Overview (08/04/2022): Severe metal hypersensitivity Assessment & Plan (08/05/2022 1:05 PM EDT): Severe sensitivity to metal. Dr. Zamarripa notified. 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 Zamarripa Assessment & Plan (08/03/2022 10:33 AM EDT): Planned surgery with Dr. Zamarripa on 08-16-22 for exploration with GABBY using interoperative navigation and possible laminectomy Nicotine dependence 08/03/2022 Assessment & Plan (08/05/2022 2:06 PM EDT): Currently smoking 3/4 pk per day. Smoking cessation encouraged. 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 Advised to avoid 2 wks prior to sx AUDIT-C Answer Date Recorded Q1: How often do you have a drink containing alcohol? 4 or more times a week 08/01/2022 Q2: How many drinks containi ng alcohol do you have on a typical day when you are drinking? 1 or 2 Q3: How often do you have si x or more drinks on one occasion? Never 08/01/2022 Sex and Gender Information Value Date Recorded Sex Assigned at Female 08/03/2022 3:38 PM EDT Gender Identity Female 08/03/2022 3:38 PM EDT Sexual Orientation Heterosexual (straight) 08/03 3:38 PM EDT Last Filed Vital Signs Vital Sign Reading Time Taken Comments Blood Pressure 148/83 08/16/2022 2:51 PM EDT Pulse 88 08/16/2022 2:51 PM EDT Temperature 37.6 ??C (99.7 ??F) 08/16/2022 2:51 PM ED T Respiratory Rate 20 08/16/2022 2:51 PM EDT Oxygen Saturation 94% 08/16/2022 2:51 PM EDT Inhaled Oxygen Concentration - - Weight 69.6 kg (153 lb 6.4 oz) 08/05/2022 1:14 P M EDT Height 168.9 cm (5' 6.5 ) 08/05/2022 1:14 PM EDT Body Mass Index 24.39 08/05/2022 1:14 PM EDT Plan of Treatment Health Maintenance Due Date Last Done Comments Hepatitis C Virus Screening 1973 Pneumococcal Vaccine: Pediat mike (0-5 Years) and At-Risk Patients (6 to 49 Years) (1 of 2 - PCV) 11/02/1979 HIV Screening 1986 DTaP/Tdap/Td Vaccines (1 - Tdap) 1992 Hepatitis B Vaccines (1 of 3 - 19+ 3-dose series) 1992 Pneumococcal Vaccines 50+ (1 of 2 - PCV) 1992 Pap Smear (Ages 21-65) 1994 Mammogram 2013 Colonoscopy 2018 Influenza Vaccine 09/21/2023 03/23/2021, , 12/15/2016, Additional history exists COVID-19 Vaccine (2023-2 5 season) 2023 02/18/2021, 04/28/2020, 04/11/2020 Zoster (Shingles) Vaccine (1 of 2) 11/02/2023 Chronic Controlled Substance User PDMP Review Discontinued 07/28/2022 Advance Directives * Full Code (Latest Code Status on File) Date Activated Date Inactivated Comments 08/16/2022 2:18 PM * Full Code Date Activated Date Inactivated Comments 08/16/2022 7:15 AM 08/16/2022 2:18 PM Care Teams Sampler Radioactive Waste Relationship Specialty Start Date End Date Liliane Benitez MD [address] [place] [address] PCP - General Internal Medicine 08/01/22 Soham Zamarripa MD [address] [place] [address] Surgery, Orthopedic 08/02/22
--- OUTSIDE RECORDS SUMMARY | 2024-04-10 09:49 | XMS_ITS ---
Author Organization [facility] Address [address] [place] [address] Care Team Providers Care Boilermaker Helper Name Role Phone Liliane Benitez MD Primary Care Provider [phone] Soham Zamarripa MD Unavailable [phone] Active Problems Problem Noted Date Diagnosed Date [...] Plan (08/03/2022 10:33 AM EDT): Smoking cessation Current Oncology Plans No current plan information found. Past Plans No past plan information found. Radiation Treatments * No radiation treatments are documented for this patient in [facility]. Treatments may have been administered in another system. Lifetime Dose Tracking * Chemical Lifetime Dose Automatic Entry Manual Entr y Dose Area Product(DAP)-mGy-cm2 1,678.74 mGy-cm2 1,678. 74 mGy-cm2 0 mGy-cm2 Resolved Problems Problem Noted Date Diagnosed Date Resolved Date Fibromyositis 08/04/2022 08/04/2022 08/05/2022
--- OUTSIDE RECORDS SUMMARY | 2024-04-10 09:50 | XMS_ITS | Encounter Summary ---
Author Organization [facility] Address [address] [place] [address] Care Team Providers Care Soft Top Installer Name Role Phone Liliane Benitez MD Primary Care Provider [phone] Soham Zamarripa MD Unavailable [phone] Encounter Details Date Type Department Care Team (Late st Contact Info) Description 08/02/2022 Telephone [facility] [place] [address] [facility] [address] [place] [address] [place], [place] [address] [place] [address] Social History Tobacco Use Types Packs/Day Years Used Date Smoking Tobacco: Every Day Cigarettes 1 10 Smokeless Tobacco: Never Alcohol Use Standard Drinks/Week Comments Yes 14 [...] Orientation Heterosexual (straight) 08/03 3:38 PM EDT COVID-19 Exposure Response Date Recorded In the last 10 days, have yo u been in contact with someone who was confirmed or suspected to have Coronavirus/COVID-19? No / Unsure 08/05/2022 12:52 PM EDT documented as of this encounter Plan of Treatment Not on file documented as of this encounter Visit Diagnoses Not on filedocumented in this encounter Care Teams Soft Top Installer Relationship Specialty Start Date End Date Liliane Benitez MD [address] [place] [address] PCP - General Internal Medicine 08/01/22 Soham Zamarripa MD [address] [place] [address] Surgery, Orthopedic 08/02/22 documented as of this encounter
--- OUTSIDE RECORDS SUMMARY | 2024-04-10 09:50 | XMS_ITS | Encounter Summary ---
Author Organization [facility] Address [address] [place] [address] Care Team Providers Care Internet Site Designer Name Role Phone Liliane Benitez MD Primary Care Provider [phone] Soham Zamarripa MD Unavailable [phone] Encounter Details Date Type Department Care Team (Late st Contact Info) Description 08/24/2022 Refill [facility] [address] [address] Soham Zamarripa MD [address] [place] [id number] Other mechanical complication of internal fixation device of vertebrae, initial encounter (HCC) Social History Tobacco Use Types Packs/Day Years Used Date Smoking Tobacco: Every Day Cigarettes 0.8 13 Smokeless Tobacco: Never Alcohol Use Standard Drinks/Week [...] suspected to have Coronavirus/COVID-19? No / Unsure 08/16/2022 7:11 AM EDT documented as of this encounter Plan of Treatment Not on file documented as of this encounter Visit Diagnoses Diagnosis Other mechanical complication of internal fixation device of vertebrae, initial encounter documented in this encounter Care Teams Internet Site Designer Relationship Specialty Start Date End Date Liliane Benitez MD [address] [place] [address] PCP - General Internal Medicine 08/01/22 Soham Zamarripa MD [address] [place] [address] Surgery, Orthopedic 08/02/22 documented as of this encounter
--- OUTSIDE RECORDS SUMMARY | 2024-04-10 09:50 | XMS_ITS | Data Portability ---
Author Organization [facility] Address [address] [place] [address] Assessment No assessment recorded. Plan of Treatment Reminders Order Date Submit Date Provider Last Modified By Organization Details Last Modified Time Details Appointments None recorded. Lab rapid flu (A+B) 2024 025 [email or web address], [address] [place] [address], [phone], 5 09:04:56 SARS CoV 2 (COVID-19) Ag, QL, IA, upper respiratory specimen 2024 025 [email or web address] _[facility], [address] [place] [address], [id number], 5 09:04:56 Referral None recorded. Procedures None recorded. Surgeries None recorded. Imaging None recorded. Medication Orders albuterol sulfate HFA 90 mcg/actuati on aerosol inhaler 2024 025 [facility]acy #[id number], [address] [place], [address], 5 09:04:59 Flonase Sensimist 27.5 mcg/actuati on nasal spray,suspe nsion 2024 025 [facility]/Pharmacy #[id number], [address] [place], [address], 5 09:04:58 prednisone 20 mg tablet 2024 025 [facility]/Pharmacy #[id number], [address] [facility] [address], [place], [address], 09:06:29 Patient TargetsNo targets recorded. Patient InstructionsNo instructions recorded. Reason for Referral None Reported. Results Created Date Observation Date Name Description Value Unit Range Abnormal Flag Note LastModifiedBy Organization Detail LastModifiedTime 03/02/1903/02/2024 SARS CoV 2 (COVI D-19) Ag, QL, IA, upper respi rator y speci men Unknown Analyte negati ve Not Available [facility] [address] [place] [address], [phone], 03/02/2024 08:38:52 03/02/1903/02/2024 rapid flu (A+B) Unknown Analyte negati ve Not Available [facility] [address] [place] [address], [phone], 03/02/2024 08:38:44 03/02/1903/02/2024 rapid flu (A+B) Unknown Analyte negati ve Not Available [facility] [address] [place] [address], [phone], 03/02/2024 08:38:44 Result Notes None recorded. Problems Name Problem SNOMED Code Status Onset Date Resolution Date Notes Provider Name and Address Organization Details Recorded Time Autoinflammator y disease Active Bety O'Bruno null, PA - [facility] 08:35:52 Heartburn 11619414 Active Bety O'Bruno null, PA - [facility] 08:36:10 Hypertensive disorder 50306377 Active Bety O'Bruno null, PA - [facility] 08:36:38 Problem Notes None recorded. Medical Equipment None Reported. Medications Name Sig Start Date Stop Date Status Note LastModified by Organization Details LastModified Time losartan 50 mg tablet TAKE 1 TABLET BY MOUTH EVERY DAY active Not Available Not Available No t Available nystatin 100,000 unit/mL oral suspension SWISH AND SWALLOW 5 ML BY MOUTH 4 TIMES A DAY,X7 DAYS 03/02 completed Not Available Not Available Not Available prednisone 10 mg tablet PLEASE SEE ATTACHED FOR DETAILED DIRECTION S active Not Available Not Available No t Available paroxetine 10 mg tablet TAKE 1 TABLET BY MOUTH EVERY DAY 03/02 completed Not Available Not Available Not Available nicotine 14 mg/24 hr daily transdermal patch APPLY 1 PATCH TOPICALLY DAILY active Not Available Not Available No t Available tizanidine 4 mg tablet TAKE 1 TABLET BY MOUTH THREE TIMES A DAY 03/02 completed Not Available Not Available Not Available citalopram 10 mg tablet TAKE 1 TABLET BY MOUTH EVERY DAY 03/02 completed Not Available Not Available Not Available ondansetron HCl 4 mg tablet TAKE 1 TABLET BY MOUTH EVERY 8 HOURS NEEDED FOR NAUSEA AND VOMITING active Not Available Not Available No t Available prednisone 20 mg tablet 40 mg po daily x 5 d 2024 active Not Available Not Available Not Avai lable prednisone 5 mg tablet PLEASE SEE ATTACHED FOR DETAILED DIRECTION S 03/02 completed Not Available Not Available Not Available omeprazole 40 mg capsule,del ayed release TAKE 1 CAPSULE BY MOUTH EVERY DAY active Not Available Not Available No t Available triamcinolo ne acetonide 0.1 % topical cream APPLY TWICE A DAY TO RASH ON EXTREMITI ES FOR 2 WEEKS, TAKE 1 WEEK OFF, REPEAT NEEDED 03/02 completed Not Available Not Available Not Available oxycodone 15 mg tablet TAKE 1 TABLET BY MOUTH EVERY 6 HOURS NEEDED FOR PAIN active Not Available Not Available No t Available amitriptyli ne 10 mg tablet TAKE 1 TABLET BY MOUTH EVERYDAY AT BEDTIME 03/02 completed Not Available Not Available Not Available paroxetine 20 mg tablet TAKE 1 TABLET BY MOUTH EVERY DAY 03/02 completed Not Available Not Available Not Available prednisone 50 mg tablet TAKE 1 TABLET BY MOUTH EVERY DAY FOR 5 DAYS 03/02 completed Not Available Not Available Not Available losartan 25 mg tablet TAKE 1 TABLET BY MOUTH EVERY DAY 03/02 completed Not Available Not Available Not Available venlafaxine 50 mg tablet TAKE 1 TABLET BY MOUTH EVERY DAY active Not Available Not Available No t Available gabapentin 300 mg capsule TAKE 1 CAPSULE BY MOUTH TWICE A DAY 03/02 completed Not Available Not Available Not Available gabapentin 100 mg capsule TAKE 1 TAB AT BEDTIME X1 WEEK THEN INCREASE TO 1 TAB TWICE A DAY X 1 WEEK THEN 1 TAB 3X A DAY active Not Available Not Available No t Available lorazepam 1 mg tablet TAKE 1 TABLET BY MOUTH ONCE 30-60 MINUTES PRIOR TO PET/CT 03/02 completed Not Available Not Available Not Available levofloxaci n 500 mg tablet TAKE 1 TABLET BY MOUTH EVERY 24 HOURS FOR 4 DAYS 03/02 completed Not Available Not Available Not Available methylpredn isolone 4 mg tablets in a dose pack TAKE 6 TABLETS ON DAY 1 DIRECTED ON PACKAGE AND DECREASE BY 1 TAB EACH DAY FOR A TOTAL OF 6 DAYS 03/02 completed Not Available Not Available Not Available albuterol sulfate HFA 90 mcg/actuati on aerosol inhaler INHALE 2 PUFFS EVERY 4 HOURS BY INHALATIO N ROUTE. active Not Available Not Available No t Available dextroamphe tamine-amph etamine 5 mg tablet TAKE 2 TABLETS BY MOUTH TWICE A DAY FOR 28 DAYS active Not Available Not Available No t Available amoxicillin 875 mg-potassiu m clavulanate 125 mg tablet active Not Available Not Available Not Available hydroxyzine pamoate 25 mg capsule TAKE 1 CAPSULE BY MOUTH 4 TIMES A DAY NEEDED FOR ANXIETY 03/02 completed Not Available Not Available Not Available neomycin 3.5 mg/g-polymy mignon B 10,000 unit/g-dexa meth 0.1 % eye oint APPLY 1/4 INCH STRIP TO LEFT EYE THREE TIMES A DAY FOR 5-7 DAYS 03/02 completed Not Available Not Available Not Available duloxetine 20 mg capsule,del ayed release TAKE 1 CAPSULE BY MOUTH TWICE A DAY 03/02 completed Not Available Not Available Not Available oxycodone 10 mg tablet TAKE 1 TABLET BY MOUTH EVERY 6 HOURS, NEEDED FOR PAIN 03/02 completed Not Available Not Available Not Available lamotrigine ER 200 mg tablet,exte nded release 24 hr TAKE 1 TABLET BY MOUTH EVERY DAY active Not Available Not Available No t Available Flonase Sensimist 27.5 mcg/actuati on nasal spray,suspe nsion Take 1 spray every day by nasal route. 2024 active Not Available Not Available Not Avai lable Vitals Date Recorded Body height Body mass index (BMI) Body weight Oxygen saturation Oxygen saturation in Arterial blood by Pulse oximetry Heart rate Body temperature Systolic blood pressure Diastolic blood pressure Provider Name and Address Organization Details Last Updated DateTime 172.72 cm 25.8 kg/m2 43123.7 g 99 % 99 % 94 /min 98.4 [degF] 144 mm[Hg] 95 mm[Hg] Bety Acosta PA - [facility] 08:28:44 Social History Question Answer Notes LastModified by Organizat ion Details LastModified Time Tobacco Smoking Status Current Every Day Smoker Bety franklin PA - [facility] 03/02/2024 08:37:31 What Is Your Level Of Alcohol Consumption? Occasional Information not available 03/02/2024 How Many Times Per Week Do You Consume Alcohol? Less Than 1 Time Per Week Information not available 03/02/2024 Are You Currently Employed? No Information not available 03/02/2024 Which Illicit Or Recreational Drugs Have You Used? Marijuana Information not available 03/02/2024 Have You Had A Flu Shot This Season? No Information not available 03/02/2024 If No, Would You Like A Flu Shot Today? No Information not available 03/02/2024 What Is Your Relationship Status? Information not available 03/02/2024 Are You Passively Exposed To Smoke? No Information no t available 03/02/2024 How Much Tobacco Do You Smoke? 1 PPD Information not available 03/02/2024 Do You Use Any Illicit Or Recreational Drugs? Yes Information not available 03/02/2024 Have You Recently Traveled Abroad? No Information not available 03/02/2024 Sex: Unknown Functional Status None recorded. Mental Status None recorded. Family History Nothing Reported. Medical History No medical history recorded. Gynecological History Statement/Question Response Is there any chance of ? No LMP Definite Obstetrics History GPAL:G 0 P 0 0 0 0 Past Encounters Encounter ID Performer Location Encounter Start Date Encounter Closed Date Diagnosis/Indication Diagnosis SNOMED-CT Code Diagnosis ICD10 Code Diagnosis Note [id number] [address] [address] 02/01/2021 08:01:38 02/01/2021 09:22:31 [id number] [address] [place] [address] 12/08/2020 08:02:35 12/08/2020 08:42:03 [id number] [facility] [address] 08/26/2019 10:06:07 08/26/2019 10:50:27 [id number] Facundo Reyes [address] [address] 03/02/2024 08:20:22 03/02/2024 09:09:34 Viral respiratory infection 178594489 J06.9 Viral infectionR ecommend plenty of fluidsnasa l sprayalbut isacc inhalerpre dnisone 40 mg po dailyRevie wed with patient potential adverse side effects of the medication .recommend smoking cessationT ylenol, Motrin for pain/fever Humidifier may last up to 2 weeksCall or RTC if worsening cough, SOB, high fever, rash, n/v/d and unable to hydrate Discussed concerning red flags with patient and reasons to follow up in the Emergency Department urgently.P atient expressed understand ing of and agreement with the plan as outlined above. Health Concerns Section Related Observation LastModified by Organization Detai ls LastModified Time None Recorded Concern Status LastModified by Organization Details LastModified Time None Recorded Advance Directives Directive None Recorded Payers Encounter Date Sequence Insurance Name Policy Number Policy De Paz Covered Member ID De Paz Member ID Guarantor Name 12/08/2020 1 [facility] [id number] Edwige Mecca [id number] Edwige Mecca 02/01/2021 1 [facility] [id number] Edwige Mecca [id number] Edwige Mecca 03/02/2024 1 [facility] Mecca [id number] Edwige Mecca Notes Date Note Type Note Provider Name and Address Organization Details Recorded Time 03/02/2024 text/html CoughReported bypatient.Notes:48 yo female c/o cough and congestion x+ fever Tmax 100last temp [facility] minute clinicRx'd Augmentin + exposure to RSV+ h/o sarcoid - on remicaidno asthma+ smoker No chillsNo nauseaNo vomitingNo wheezeNo difficulty breathing or respiratory distressNo CPNo sinus painNo ear painNo sore throatNo Abdominal painNo diarrheaNo myalgiaNo fatigueNo rashNo HANo dizzinessNo recent travel Facundo Reyes DO [address] [place], [address], PA - [facility] 03/02/2024 09:07:21 OBGyn Episode No OBEpisode recorded.
--- NOTE | 2024-04-10 09:55 | MHC.OFFVIS ---
Vital Signs 04/10/24 09:57 Height 5 ft 8 in Weight 164 lb BMI 24.9 BP 110/62 Blood Pressure Location Lt brachial Position Sitting Pulse 78 Pulse Source Pulse Oximeter Pulse Oximetry (%) 95 Oxygen Delivery Method Room Air Intake Visit Reasons: Follow Up 3mo Intake Note: Pt present today Sarcoid arthritis. 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 She is able to get up ambulate but with difficulty. She has chronic back pain and has followed up with mattress weaver in [place] who has reviewed her lumbar spine imaging with her and told her that she has areas of fat surrounding her spine instead of support. She has had multiple surgeries in her back and a spinal stimulator. She also sees [facility] Dr. López who has ordered MRI lumbar spine and pelvis recently. She also receives trochanteric bursa cortisone injections from [employer], which she has been receiving over the last 4 years but the benefit is wearing off. She has pain when she sleeps on her sides. She continues to have pain and some slight swelling in her knees, ankles and feet. Denies morning stiffness. PCP did not increase gabapentin due to concurrent use of oxycodone. She has history of lumbar degenerative joint disease requiring fusion in 1993. She also had a spinal stimulator in 04/2019. She is unable to stand for prolonged periods of time due to uncontrolled back pain. She has difficulty with functioning due to overall uncontrolled pain. She continues to experience easily bruising. Pulmonologists is recommending that patient avoid further prednisone, which may be a culprit agent contributing to bruising. PCP is working with patient on psychiatric medication management, which has resulted in drug-induced bruising in the past. [facility]. Rheumatology history: History of diagnosis of polyarthritis previously treated by Dr. Thomason and failed treatment with methotrexate, Enbrel and Humira. She was diagnosed with sarcoidosis with lung involvement and continues to have inflammatory arthritis mainly involving joint swelling in bilateral knees, ankles and feet. Clinical picture of inflammatory arthritis can represent sarcoid related arthropathy. She was started on Inflectra 2023. She has history of steatohepatitis with transaminitis. She has history of fibromyalgia on gabapentin. [facility]LY [facility] Medical History Anxiety Back pain Bleeds easily Bruises easily Cataract Chronic, continuous use of opioids Depression Hx of skin cancer, basal cell Hx of squamous cell carcinoma of skin Immune hypersensitivity reaction Nausea PONV (postoperative nausea and vomiting) Smoker Surgical History History of back surgery History of cholecystectomy Hx of tonsillectomy Social History Are you a primary career technical counselor to a significant other at home: No Do you presently have visiting nurse or other home services: No Alcohol intake: current Alcohol intake frequency: holidays/special occasions only Patient Tobacco Use Status: Current everyday Tobacco user Tobacco use type: Cigarette Cigarette Packs Per Day: 1 Cigarettes Per Day: 20.0 Years Smoked: 14 Review of Systems Const All systems reviewed & are unremarkable except as noted in HPI and below Physical Exam Vital Signs: Last Vital Signs Pulse 78 04/10/24 09:57 BP 110/62 04/10/24 09:57 Pulse Ox 95 04/10/24 09:57 Oxygen Delivery Method Room Air 04/10/24 09:57 BMI result Body Mass Index 24.9 Const Other: General: Comfortable CVS: RRR Respiratory: clear to auscultation bilaterally. Good respiratory effort Skin: No lesions seen MSK: Tender right 2nd 3rd MCP and PIP of right hand. 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 Diffuse allodynia upper extremities and lower extremities. No tenderness of lumbar spine or paraspinal muscles. Good lumbar flexion. No synovitis of any joint. Tender bilateral knees and ankles. Tender MTPs. Good range of motion of lower extremities. Assessment & Plan Assessment & Plan (1) Sarcoid arthritis: Comment: Synovitis has resolved on higher dose of Inflectra She is also experiencing concurrent pain from fibromyalgia, which needs to be better controlled. History of diagnosis of polyarthritis previously treated by Dr. Thomason and failed treatment with methotrexate, Enbrel and Humira. She was diagnosed with sarcoidosis with lung involvement and continues to have inflammatory arthritis mainly involving joint swelling in bilateral knees, ankles and feet. She has hepatic steatosis with fluctuating transaminitis. Inflectra started 2023 Code(s): D86.86 - Sarcoid arthropathy Category: Medical Plan: Continue Inflectra 5 milligram/kilogram every 4 weeks Labs for disease and drug monitoring on high-risk medication ordered Contraindication to oral NSAIDs due to bruising Contraindication to Tylenol due to transaminitis Return to clinic in 3 months (2) Fibromyalgia: Comment: Uncontrolled on gabapentin 300 mg q.day. Code(s): M79.7 - Fibromyalgia Category: Medical Plan: Recommend contacting PCP to consider up titration of gabapentin as she tolerates it to better control fibromyalgia. Can consider adjunct therapy with Savella, amitriptyline or cyclobenzaprine. (3) Greater trochanteric bursitis of both hips: Comment: Being managed by [facility] with cortisone injections to trochanteric bursa but the benefit is wearing off. I have recommended physical therapy for hip strengthening. Code(s): M70.61 - Trochanteric bursitis, right hip; M70.62 - Trochanteric bursitis, left hip Category: Medical Plan: PT ordered (4) Lumbar spondylosis: Comment: Chronic back pain due to lumbar spondylosis requiring fusion 1993 and spinal stimulator placement 04/2019. Recently she has had recurrent episodes of legs giving out on patient resulting in falls. I recommended PT for back and lower extremity strengthening. Patient will be following up for MRI lumbar spine and pelvis results with [facility] Dr. López Code(s): M47.816 - Spondylosis without myelopathy or radiculopathy, lumbar region Category: Medical Plan: PT ordered for back and lower extremity strengthening MRI L-spine and pelvis report requested. She will be following up with Dr. Rajput for results and further management. (5) Other prison (current) drug therapy: Comment: See above Code(s): Z79.899 - Other intermodal customer service (current) drug therapy Category: Medical Plan: See above Orders: Orders PT Evaluation and Treatment Today M47.816 - Spondylosis without myelopathy or radiculopathy, lumbar region, M70.61 - Trochanteric bursitis, right hip, M70.62 - Trochanteric bursitis, left hip Coding Level of Care Code Est Pt Level 4 (88423) Complex EM visit Add On G2211 Diagnoses Sarcoid arthritis D86.86 Fibromyalgia M79.7 Greater trochanteric bursitis of both hips M70.61; M70.62 Lumbar spondylosis M47.816 Other intermodal customer service (current) drug therapy Z79.896
[2024-04-10 09:57] VITALS: BP 110/62; PULSE 78; O2SAT 95; BMI 24.9
== END 2024-04-10 10:37 | disposition home or self-care (01) ==
PROVIDERS: PCP Internal Medicine; Visit Provider Internal Medicine Rheumatology
DX: D86.86 Sarcoid arthropathy (principal); M79.7 Fibromyalgia; M70.61 Trochanteric bursitis, right hip; M70.62 Trochanteric bursitis, left hip; M47.816 Spondylosis without myelopathy or radiculopathy, lumbar region; Z79.899 Other long term (current) drug therapy
CPT/HCPCS: 99214

== ENCOUNTER 2024-04-11 | Outpatient (REF) | payer OTHER, SELFPAY ==
[2024-04-11 12:19] LABS: MANUAL DIFF FLAG NO
[2024-04-11 12:32] LABS: Basophils Percent Auto 0.2 % (0-2); Eosinophils Absolute Auto 0.1 X10*3/uL (0.0-0.4); Eosinophils Percent Auto 0.6 % (0-4); Hematocrit 44.5 % (37.0-47.0); Hemoglobin 15.1 g/dl (12.0-16.0); Imm Gran Abs Auto 0.04 X10*3/uL (0.00-0.03); Imm Gran Pct Auto 0.5 % (0.0-0.4); Lymphocytes Absolute Auto 1.9 X10*3/uL (1.2-4.9); Lymphocytes Percent Auto 22.7 % (20-40); Mean Corpuscular HGB Conc 33.9 g/dl (31.0-35.0); Mean Corpuscular Hemoglobin 32.3 pg (27.0-33.0); Mean Corpuscular Volume 95.1 fL (80.0-98.0); Mean Platelet Volume 9.4 fL (9.4-12.3); Monocytes Absolute Auto 0.9 X10*3/uL (0.1-1.2); Monocytes Percent Auto 10.4 % (2-11); Neutrophils Absolute Auto 5.3 x10*3/uL (2.0-8.3); Neutrophils Percent Auto 65.6 % (45-73); Platelet Count 236 X10*3/uL (160-400); Red Blood Count 4.68 X10*6/uL (4.20-5.50); Red Cell Distribution Width 14.3 % (11.0-16.0); White Blood Count 8.1 X10*3/uL (4.8-10.8)
[2024-04-11 12:35] LABS: Alanine Aminotransferase 87 U/L (0-31); Aspartate Amino Transferase 45 U/L (5-31); C Reactive Protein 0.29 mg/dL (< or = 0.50); Estimated Glomerular Filt Rate > 60
[2024-04-11 12:56] LABS: HBc Num1 0.23 S/CO (0.00-0.79); HBsAGNum1 0.28 S/CO (0.00-0.99); Hepatitis B Core Antibody Nonreactive (Nonreactive); Hepatitis B Surface Antigen Negative (Negative); ~HepC Num1 0.08 S/CO (0.00-0.79); ~Hepatitis B Surface Antibody NONREACTIVE (Nonreactive); ~Hepatitis C Antibody Nonreactive (Nonreactive)
[2024-04-11 13:10] LABS: Erythrocyte Sedimentation Rate 10 MM/HR (0-20)
--- OUTSIDE RECORDS SUMMARY | 2024-08-13 15:45 | XMS_ITS | Clinical Summary ---
Author Organization [facility] Address [address] [place] [address] Care Team Providers Care Transport Tech Name Role Phone Liliane Benitez MD Primary Care Provider [phone] Soham Zamarripa MD Unavailable [phone] Jacklyn Lehman PT Unavailable [phone] [address] LayD Unavailable [phone] Allergies Active Allergy Reactions Criticality Noted Date Comments Nickel Rash/Dermatitis Low 08/01/2022 Blisters, severe pain Tricyclic Antidepressants Other (See Comments) Low 06/20/2024 Patient reports she gets severe bruising with any antidepressant Medications * This document contains information received from the source organization and may not represent a complete record from that organization. lamoTRIgine ER 200 MG Tablet SR 24 hr Take 1 tablet by mouth every morning. 07/09/19 23 Active amphetamine-dex troamphetamine (ADDERALL) 5 MG tablet 2 (two) times a day. 07/08/19 23 Active OMEprazole (PriLOSEC) 20 MG capsule Take 1 capsule (20 mg total) by mouth every morning before breakfast. Active ondansetron (ZOFRAN) 4 MG tablet Take 1 tablet (4 mg total) by mouth. 08/06/19 23 Active oxyCODONE (ROXICODONE) 5 MG immediate release tabletIndicatio ns:Other mechanical complication of internal fixation device of vertebrae, initial encounter Take 1-2 tablets (5-10 mg total) by mouth every 4 (four) hours as needed for severe pain. Take 1-2 tabs by mouth every 4-6 hours as needed for pain. This is a 1 week supply. Max Daily Amount: 60 mg 40 tablet 08/25/19 23 Active losartan (COZAAR) 50 MG tablet Take 1 tablet (50 mg total) by mouth daily. 01/01/20 24 Active diclofenac enteric coated (VOLTAREN) 50 MG EC tabletIndicatio ns:Tendinopathy of right gluteus medius Take 1 tablet (50 mg total) by mouth 2 times daily (every 12 hours) as needed (pain). Administer with food avoid GI upset. 60 tablet 07/19/19 25 Active methocarbamol (ROBAXIN) 750 MG tabletIndicatio ns:Tendinopathy of right gluteus medius Take 1 tablet (750 mg total) by mouth 3 times daily (every 8 hours) as needed for muscle spasms. 90 tablet 07/24/19 25 Active Additional Information Patient not taking.Reported on 08/09/2024 inFLIXimab-dyyb (INFLECTRA IV) Infuse into a venous catheter. Active ibuprofen (MOTRIN) 200 MG tablet Take 4 tablets (800 mg total) by mouth 2 (two) times a day as needed for mild pain. 025 Discontinued Active Problems Problem Noted Date Diagnosed Date History of fusion of lumbar spine 06/05/2024 Other mechanical complicatio n of internal fixation [...] Date Resolved Date Fibromyositis 08/04/2022 08/04/2022 08/05/2022 Encounters * This document contains information received from the source organization and may not represent a complete record from that organization. Date Type Department Care Team Description 08/09/2024 12:35 PM EDT Ancillary Procedure [facility] [address] [place] [address] Provider, File Room 08/09/2024 12:30 PM EDT Ancillary Procedure [facility] [address] [place] [address] Provider, File Room 08/09/2024 12:25 PM EDT Ancillary Procedure [facility] [address] [place] [address] Provider, File Room 08/09/2024 12:20 PM EDT Ancillary Procedure [facility] [address] [place] [address] Provider, File Room 08/09/2024 12:15 PM EDT Ancillary Procedure [facility] [address] [place] [address] Provider, File Room 08/09/2024 11:40 AM EDT Office Visit [facility] [address] [phone] Peña Lei MD Chronic bilateral low back pain without sciatica (Primary Dx); Tendinopathy of right gluteus medius; History of fusion of lumbar spine; Chronic pain syndrome 08/09/2024 Documentation [facility] [place] [address] [address] [place] [address] Jacklyn Lehman, PT 08/09/2024 Travel 08/05/2024 Travel 07/18/2024 Telephone [facility] [address] [phone] Peña Lei MD Medical Complaint 07/16/2024 Travel 06/27/2024 Telephone [facility] [address] [place] [phone] Liliane Benitez MD Appointment 06/21/2024 Documentation [facility] [place] [address] [address] [place] [address] Jacklyn Lehman, PT 06/21/2024 Orders Only [facility] [place] [address] [address] [place] [address] Jacklyn Lehman, PT Chronic bilateral low back pain without sciatica (Primary Dx); Tendinopathy of right gluteus medius; History of fusion of lumbar spine; Chronic pain syndrome 06/21/2024 Telephone [facility] at [address], [place] [phone] Peña Lei MD Advice Only 06/20/2024 11:15 AM EDT Office Visit [facility] at [address], [place] [phone] Peña Lei MD Chronic bilateral low back pain without sciatica (Primary Dx); Tendinopathy of right gluteus medius 06/20/2024 Travel 06/17/2024 Orders Only [facility] [address] [phone] Johan Haile MD Post traumatic stress disorder (PTSD) (Primary Dx); History of fusion of lumbar spine; Chronic pain syndrome 06/04/2024 Telephone [facility] [address] [place] [phone] Susan Blackman MA 06/04/2024 Orders Only [facility] [address] [place] [phone] Susan Blackman MA 06/04/2024 Orders Only [facility] [address] [place] [phone] ProviderVicki MD 06/03/2024 12:00 PM EDT Telemedicine [facility] [address] [phone] Johan Haile MD Other mechanical complication of internal fixation device of vertebrae, subsequent encounter (Primary Dx); Post traumatic stress disorder (PTSD); Attention deficit hyperactivity disorder (ADHD), unspecified ADHD type; Tobacco use; History of fusion of lumbar spine 06/03/2024 Telephone Physical Medicine and [facility] [address] [place] [phone] Susan Blackman MA 06/03/2024 Travel 06/03/2024 Orders Only [facility] [address] [place] [address] Provider, MD Vicki from Last 3 Months Family History Medical History Relation Name Comments [...] more drinks on one occasion? Never 08/01/2022 [facility] [place] of Occupat ional Health - Occupational Stress Questionnaire Answer Date Recorded Do you feel stress - tense, restless, nervous, or anxious, or unable to sleep at night because your mind is troubled all the time - these days? Very much 06/03/2024 Physical Activity Answer Date Recorded On average, how many days pe r week do you engage in moderate to strenuous exercise (like a brisk walk)? 0 days 06/03/2024 On average, how many minutes do you exercise per day at this level? 0 min 06/03/2024 Comments No Sex and Gender Information Value Date Recorded Sex Assigned at Female 08/03/2022 3:38 PM EDT Legal Sex Female 9:09 AM EDT Gender Identity Female 08/03/2022 3:38 PM EDT Sexual Orientation Heterosexual (straight) 08/03 3:38 PM EDT Last Filed Vital Signs Vital Sign Reading Time Taken Comments Blood Pressure 125/84 08/09/2024 11:46 AM EDT Pulse 96 08/09/2024 11:46 AM EDT Temperature 37.6 C (99.7 F) 08/16/2022 2:51 PM EDT Respiratory Rate 18 08/09/2024 11:46 AM EDT Oxygen Saturation 95% 08/09/2024 11:46 AM EDT Inhaled Oxygen Concentration - - Weight 69.6 kg (153 lb 6.4 oz) 08/05/2022 1:14 P M EDT Height 168.9 cm (5' 6.5 ) 08/05/2022 1:14 PM EDT Body Mass Index 24.39 08/05/2022 1:14 PM EDT Plan of Treatment Upcoming Encounters Date Type Department Care Team (Late st Contact Info) Description 08/22/2024 9:00 AM EDT Evaluation [address] [phone] Peña Lei MD [address] [place] [phone] Mili [place], PT [facility] [address] [address] 09/25/2024 11:20 AM EDT Office Visit [facility] at [address] [phone] Peña Lei MD [address] [place] [phone] Health Maintenance Due Date Last Done Comments Hepatitis C Virus Screening 1973 Quantiferon Gold TB 11/02/1983 HIV Screening 1986 Chronic Controlled Substance Toxicology Screening 11/02/1991 Controlled Substance Agreeme nt Initial and Annual Review 11/02/1991 DTaP/Tdap/Td Vaccines (1 - Tdap) 1992 Hepatitis B Vaccines (1 of 3 - 19+ 3-dose series) 1992 Pneumococcal Vaccines 50+ (1 of 2 - PCV) 1992 Zoster (Shingles) Vaccine (1 of 2) 1992 Pap Smear (Ages 21-65) 1994 Mammogram 2013 Colonoscopy 2018 Chronic Controlled Substance User PDMP Review 10/26/2022 07/28/2022 COVID-19 Vaccine (4 - 2023-2 5 season) 2023 02/18/2021, 04/28/2020, 04/11/2020 Influenza Vaccine 09/20/2024 02/03/2023, , 03/23/2021, Additional history exists Procedures Procedure Name Priority Date/Time Associated Diagnosis Comments MR EXTREMITY RIGHT ARCHIVE FOR REFERENCE ONLY Routine 08/09/2024 12:15 PM EDT MR SPINE ARCHIVE FOR REFERENCE ONLY Routine 08/09/2024 12:15 PM EDT MR EXTREMITY RIGHT ARCHIVE FOR REFERENCE ONLY Routine 08/09/2024 12:14 PM EDT MR SPINE ARCHIVE FOR REFERENCE ONLY Routine 08/09/2024 12:13 PM EDT MR ABDOMEN ARCHIVE FOR REFERENCE ONLY Routine 08/09/2024 12:13 PM EDT T-SPOT TB Routine 06/04/2024 12:28 PM EDT WBC Routine 06/04/2024 10:20 AM EDT HC MRI PELVIS W/O & W/CONTRAST MATERIAL Routine 06/03/2024 11:42 AM EDT MRI LUMBAR SPINE W W/O CONTRAST Routine 06/03/2024 11:40 AM EDT from Last 3 Months Results * MR Extremity Right Archive for Reference Only (08/09/2024 12:15 PM EDT) Only the most recent of2 resultswithin the time period is included. Narrative [facility] - 08/09/2024 12:15 PM EDT This study has been auto finalized and does not contain a result. us File Room Provider IMG DIGITIZE FILMS Final Resu lt [facility] [phone] * MR Spine Archive for Reference Only (08/09/2024 12:15 PM EDT) Only the most recent of2 resultswithin the time period is included. Narrative [place] - 08/09/2024 12:15 PM EDT This study has been auto finalized and does not contain a result. us File Room Provider IMG DIGITIZE FILMS Final Resu lt Performing Organization Address [facility] de Phone Number [facility] [phone] * MR Abdomen Archive for Reference Only (08/09/2024 12:13 PM EDT) Narrative [place] - 08/09/2024 12:13 PM EDT This study has been auto finalized and does not contain a result. us File Room Provider IMG DIGITIZE FILMS Final Resu lt Performing Organization Address [facility] de Phone Number [facility] [phone] * T-Spot?? TB (06/04/2024 12:28 PM EDT) Blood Blood specimen / Unknown us External Provider LAB BLOOD ORDERABLES Final Result * WBC (06/04/2024 10:20 AM EDT) Blood Blood specimen / Unknown us External Provider LAB BLOOD ORDERABLES Final Result * HC MRI PELVIS W/O & W/CONTRAST MATERIAL (06/03/2024 11:42 AM EDT) us External Provider HB CHARGEABLES Final Resul t * MRI Lumbar spine w w/o contrast (06/03/2024 11:40 AM EDT) Anatomical Region Laterality Modality L-spine Magnetic Resonan ce us External Provider IMG MRI ORDERABLES Final Re sult from Last 3 Months Insurance [employer] Advance Directives * Full Code (Latest Code Status on File) Date Activated Date Inactivated Comments 08/16/2022 2:18 PM * Full Code Date Activated Date Inactivated Comments 08/16/2022 7:15 AM 08/16/2022 2:18 PM Care Teams Transport Tech Relationship Specialty Start Date End Date Liliane Benitez MD [address] [place] [address] PCP - General Internal Medicine 08/01/22 Soham Zamarripa MD [address] [facility] [address] [place] [address] Surgery, Orthopedic 08/02/22 Jacklyn Lehman, PT 85 [facility] [address] [place] [phone] Bleach Range OperatorShoe Folder [facility] and [facility] 06/10/24 Mich La PsyD [address] [place], [place] [phone] Clinical Psychologist Psychology 08/05/24
== END 2024-04-11 00:01 | disposition home or self-care (01) ==
LOC: HO.LAB
PROVIDERS: PCP Internal Medicine; Visit Provider Internal Medicine Rheumatology
DX: D86.86 Sarcoid arthropathy (principal); Z79.899 Other long term (current) drug therapy
CPT/HCPCS: 36415; 82565; 84450; 84460; 85025; 85652; 86140; 86704; 86706; 86803; 87340

== ENCOUNTER 2024-08-20 07:56 | Outpatient (AMB) | payer OTHER, SELFPAY ==
--- NOTE | 2024-08-20 07:59 | MHC.OFFVIS ---
Vital Signs 08/20/24 08:00 Height 5 ft 9.61 in Weight 145 lb 2 oz BMI 21.1 BP 100/70 Blood Pressure Location Rt brachial Position Sitting Pulse 81 Pulse Source Pulse Oximeter Pulse Oximetry (%) 95 Oxygen Delivery Method Room Air Intake Visit Reasons: follow up/ discuss infusion Intake Note: Pt present today Sarcoid arthritis. Allergies citalopram (From Celexa) Allergy (Unknown, Verified 08/20/24 07:59) Hives nickel Adverse Reaction (Verified 08/20/24 07:59) Unknown HPI HPI follow up/ discuss infusion: Details: She has abductor tear (gluteaus medius) right side. Pain is uncontrolled. She has lost weight. She is not eating well. She saw PMR in [place]. Plan to do aquatic therapy. Feels imbalanced. Ankle swelling has improved. She has sensation of pain described as bruising on the tops of her feet. [facility] Medical History (Updated 08/20/24 @ 08:36 by Elmer Jeffrey MD) H/O Mohs micrographic surgery for skin cancer Smoker Hx of squamous cell carcinoma of skin Hx of skin cancer, basal cell PONV (postoperative nausea and vomiting) Bleeds easily Bruises easily Immune hypersensitivity reaction Nausea Depression Anxiety Chronic, continuous use of opioids Back pain Cataract Surgical History History of cholecystectomy History of back surgery Hx of tonsillectomy Social History Are you a primary acute care nursing assistant to a significant other at home: No Do you presently have visiting nurse or other home services: No Alcohol intake: current Alcohol intake frequency: holidays/special occasions only Patient Tobacco Use Status: Current everyday Tobacco user Tobacco use type: Cigarette Cigarette Packs Per Day: 1 Cigarettes Per Day: 20.0 Years Smoked: 14 Physical Exam Vital Signs: Last Vital Signs Pulse 81 08/20/24 08:00 Pulse Ox 95 08/20/24 08:00 Oxygen Delivery Method Room Air 08/20/24 08:00 BMI result Body Mass Index 21.1 Const Other: General: Comfortable CVS: RRR Respiratory: clear to auscultation bilaterally. 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 Diffuse allodynia upper extremities and lower extremities. Good lumbar flexion. No synovitis of any joint. Tender bilateral knees and ankles. Tender MTPs. Good range of motion of lower extremities. Assessment & Plan Assessment & Plan (1) Sarcoid arthritis: Comment: Synovitis has resolved on higher dose of Inflectra. Polyarthralgias from inflammatory arthritis is not controlled. She is also experiencing concurrent pain from fibromyalgia, which needs to be better controlled. History of diagnosis of polyarthritis previously treated by Dr. Thomsaon and failed treatment with methotrexate, Enbrel and Humira. She was diagnosed with sarcoidosis with lung involvement and continues to have inflammatory arthritis mainly involving joint swelling in bilateral knees, ankles and feet. She has hepatic steatosis with fluctuating transaminitis. Catering Coordinator [place] Dr. Haley reports sarcoidosis involves his liver. Inflectra started 2023 Code(s): D86.86 - Sarcoid arthropathy Category: Medical Plan: Increase Inflectra 7.5 milligram/kilogram every 4 weeks Labs for disease and drug monitoring on high-risk medication ordered Contraindication to oral NSAIDs due to bruising Contraindication to Tylenol due to transaminitis Return to clinic in 3 months (2) Fibromyalgia: Comment: Uncontrolled on gabapentin 300 mg q.day. Code(s): M79.7 - Fibromyalgia Category: Medical Plan: Recommend contacting PCP to consider up titration of gabapentin such as gabapentin 600 mg t.i.d. as she tolerates it to better control fibromyalgia. Can consider adjunct therapy with Savella, amitriptyline or cyclobenzaprine. (3) Greater trochanteric bursitis of both hips: Comment: Being managed by new [facility] with cortisone injections to trochanteric bursa but the benefit is wearing off. Failed cortisone injection. Being managed by PMR in [place]. Code(s): M70.61 - Trochanteric bursitis, right hip; M70.62 - Trochanteric bursitis, left hip Category: Medical Plan: She will be starting the aquatic therapy ordered by PMR in [place] Apply lidocaine patch to affected area daily Apply ice or heat to affected area twice a day She will use muscle relaxer prescribed by PMR q.h.s. Follow up with PMR (4) Lumbar spondylosis: Comment: Chronic back pain due to lumbar spondylosis requiring fusion 1993 and spinal stimulator placement 04/2019. Recently she has had recurrent episodes of legs giving out on patient resulting in falls. Code(s): M47.816 - Spondylosis without myelopathy or radiculopathy, lumbar region Category: Medical Plan: She will be following up with Dr. Rajput orthopedic surgeon for management. (5) Other assisted (current) drug therapy: Comment: See above Code(s): Z79.899 - Other assisted (current) drug therapy Category: Medical Plan: See above Orders: Orders Complete Blood Count Man Dif Today Z79.899 - Other assisted (current) drug therapy Alanine Aminotransferase Today Z79.899 - Other superintendent container terminal (current) drug therapy Aspartate Amino Transferase Today Z79.899 - Other assisted (current) drug therapy Creatinine Today Z79.899 - Other assisted (current) drug therapy C Reactive Protein Today Z79.899 - Other superintendent container terminal (current) drug therapy Erythrocyte Sedimentation Rate Today Z79.899 - Other assisted (current) drug therapy Coding Level of Care Code Est Pt Level 4 (09447) Complex EM visit Add On G2211 Diagnoses Sarcoid arthritis D86.86 Fibromyalgia M79.7 Greater trochanteric bursitis of both hips M70.61; M70.62 Lumbar spondylosis M47.816 Other assisted (current) drug therapy Z79.899
[2024-08-20 08:00] VITALS: BP 100/70; PULSE 81; O2SAT 95; BMI 21.1
--- OUTSIDE RECORDS SUMMARY | 2024-08-20 08:00 | XMS_ITS | Data Portability ---
Author Organization [facility], [address] Address [address] [place] [address] Assessment No assessment recorded. Plan of Treatment Reminders Order Date Submit Date Provider Last Modified By Organization Details Last Modified Time Details Appointments None recorded. Lab rapid flu (A+B) 2024 025 [email or web address] _[facility], [address] [place] [address], [phone], 5 09:04:56 SARS CoV 2 (COVID-19) Ag, QL, IA, upper respiratory specimen 2024 025 [email or web address] _[facility], [address] [place], [phone], 5 09:04:56 Referral None recorded. Procedures None recorded. Surgeries None recorded. Imaging None recorded. Medication Orders albuterol sulfate HFA 90 mcg/actuati on aerosol inhaler 2024 025 [facility] #[id number], [address] [place], [address], 5 09:04:59 Flonase Sensimist 27.5 mcg/actuati on nasal spray,suspe nsion 2024 025 [facility] #[id number], [address] [place], [address], 5 09:04:58 prednisone 20 mg tablet 2024 025 [facility] #[id number], [address] [facility], [place], [address], 09:06:29 Patient TargetsNo targets recorded. Patient InstructionsNo instructions recorded. Reason for Referral None Reported. Results Created Date Observation Date Name Description Value Unit Range Abnormal Flag Note LastModifiedBy Organization Detail LastModifiedTime 03/02/1903/02/2024 SARS CoV 2 (COVI D-19) Ag, QL, IA, upper respi rator y speci men Unknown Analyte negati ve Not Available 2099[facility] [address] [place] [address], [phone], 03/02/2024 08:38:52 03/02/1903/02/2024 rapid flu (A+B) Unknown Analyte negati ve Not Available [facility] [address] [place] [address], [phone], 03/02/2024 08:38:44 03/02/1903/02/2024 rapid flu (A+B) Unknown Analyte negati ve Not Available [facility] [address] [place] [address], [phone], 03/02/2024 08:38:44 Result Notes None recorded. Problems Name Problem SNOMED Code Status Onset Date Resolution Date Notes Provider Name and Address Organization Details Recorded Time Autoinflammator y disease Active Bety O'Bruno null, [place] - [facility] 08:35:52 Heartburn 11328198 Active Bety O'Bruno null, PA - [facility] 5 08:36:10 Hypertensive disorder 29437354 Active B[facility], [facility] - [facility] [...] Last Updated DateTime 172.72 cm 25.8 kg/m2 89397.7 g 99 % 99 % 94 /min 98.4 [degF] 144 mm[Hg] 95 mm[Hg] Bety KarinaAshBruno PA - [facility] 08:28:44 Social History Question Answer Notes LastModified by Matcha ion Details LastModified Time Tobacco Smoking Status Current Every Day Smoker Bety Karla rfanklin, PA - [facility] 03/02/2024 08:37:31 Which Illicit Or Recreational Drugs Have You [...] Smoke? 1 PPD Information not available 03/02/2024 Have You Recently Traveled Abroad? No Information not available 03/02/2024 Sex: Unknown Functional Status Question Answer Note LastModified by ReliSen Details LastModified Time How many times per week do you consume alcohol? Less than 1 time per week Information not available 03/02/2024 Do you use any illicit or recreational drugs? Yes Information not available 03/02/2024 What is your level of alcohol consumption? Occasional Information not available 03/02/2024 Are you currently employed? No Information not available 03/02/2024 Mental Status None recorded. Family History Nothing Reported. Medical History No medical history recorded. Gynecological History Statement/Question Response Is there any chance of ? No LMP Definite Obstetrics History GPAL:G 0 P 0 0 0 0 Past Encounters Encounter ID Performer Location Encounter Start Date Encounter Closed Date Diagnosis/Indication Diagnosis SNOMED-CT Code Diagnosis ICD10 Code Diagnosis Note [id number] [address] [address] [address] 02/01/2021 08:01:38 02/01/2021 09:22:31 [id number] 2099[facility] [address] [place] [address] 12/08/2020 08:02:35 12/08/2020 08:42:03 [id number] [facility] [address] [place] [address] 08/26/2019 10:06:07 08/26/2019 10:50:27 [id number] Facundo Reyes DO [facility] [address] [place] [phone] 03/02/2024 08:20:22 03/02/2024 09:09:34 Viral respiratory infection [id number] J06.9 Viral infectionR ecommend plenty of fluidsnasa [...] Recorded Advance Directives Directive None Recorded Payers Insurance Date Sequence Insurance Name Policy Number Policy De Paz Covered Member ID De Paz Member ID Guarantor Name 03/02/[address] [facility] Brittany [place] [id number] Edwige [place] 03/02/2024 1 [employer] [facility] [id number] Edwige [place] [id number] Edwige [place] Notes Date Note Type Note Provider Name and Address Organization Details Recorded Time 03/02/2024 text/html CoughReported bypatient.Notes:48 yo female c/o cough and congestion x+ fever Tmax 100last temp [facility] + exposure to RSV+ h/o sarcoid - on remicaidno asthma+ smoker No chillsNo nauseaNo vomitingNo wheezeNo difficulty breathing or respiratory distressNo CPNo sinus painNo ear painNo sore throatNo Abdominal painNo diarrheaNo myalgiaNo fatigueNo rashNo HANo dizzinessNo recent travel Facundo Reyes, DO [address], [place], [place], [address], [place] - [facility] 03/02/2024 09:07:21 OBGyn Episode No OBEpisode recorded.
--- OUTSIDE RECORDS SUMMARY | 2024-08-20 08:00 | XMS_ITS ---
Author Name [facility] Organization Unknown History of Medication Use Medication Directions Dispensed Refills Start Date End Date Stat us methocarbamol (ROBAXIN) 750 MG tablet Take 1 tablet (750 mg total) by mouth 3 times daily (every 8 hours) as needed for muscle spasms. 07/23/2024 active diclofenac enteric coated (VOLTAREN) 50 MG EC tablet Take 1 tablet (50 mg total) by mouth 2 times daily (every 12 hours) as needed (pain). Administer with food avoid GI upset. 07/18/2024 active meloxicam (MOBIC) 7.5 MG tablet Take 1 tablet (7.5 mg total) by mouth. 05/29/2024 active losartan (COZAAR) 50 MG tablet Take 1 tablet (50 mg total) by mouth daily. 01/01/2024 active aspirin enteric coated (ECOTRIN LOW STRENGTH) 81 MG EC tablet Take 1 tablet (81 mg total) by mouth 2 (two) times a day. Do not start before August 17, 2022. 08/17/2022 active HYDROmorphone (DILAUDID) 2 MG tablet Take 1-2 tablets (2-4 mg total) by mouth Every 4 (four) to 6 (six) hours as needed for severe pain. Max Daily Amount: 24 mg 08/16/2022 08/17/2022 aborted ondansetron (ZOFRAN) 4 MG tablet Take 1 tablet (4 mg total) by mouth. 08/05/2022 active amphetamine-dextroam phetamine (ADDERALL) 5 MG tablet 2 (two) times a day. 07/07/2022 active oxyCODONE (ROXICODONE) 10 mg immediate release tablet TAKE 1 TABLET BY MOUTH EVERY 6 HOURS FOR 28 DAYS NEEDED FOR MODERATE PAIN 07/07/2022 active ibuprofen (MOTRIN) 200 MG tablet Take 4 tablets (800 mg total) by mouth 2 (two) times a day as needed for mild pain. active inFLIXimab-dyyb (INFLECTRA IV) Infuse into a venous catheter. active OMEprazole (PriLOSEC) 20 MG capsule Take 1 capsule (20 mg total) by mouth every morning before breakfast. 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 active 2022-08-03 ProblemAct [facility] Allergy to metal active 2022-08-04 ProblemAct [facility] Tobacco use active 2022-08-04 ProblemAct [facility] Post traumatic stress disorder (PTSD) active 2022-08-04 ProblemAct [facility] Tendinopathy of right gluteus medius active EncounterDiagnosisAct [facility] T Other mechanical complication of internal fixation device of vertebrae, subsequent encounter active 2022-08-16 ProblemAct [facility] Hyperlipidemia active 2022-08-[address] History of fusion of lumbar spine active 2024-06-05 ProblemAct [facility] ADHD (attention deficit hyperactivity disorder) active 2022-08-04 ProblemAct [facility] Nicotine dependence active 2022-08-03 ProblemAct [facility] Alcohol use active 2022-08-05 ProblemAct [facility] Basal cell carcinoma active 2022-08-04 ProblemAct [facility] Encounters Encounter Type Encounter Reason Primary Diagnosis Location Date Ambulatory [facility] 08/09/2024 [facility]ulatory [facility] 08/09/2024 [facility] 08/09/2024 [facility] 08/09/2024 [facility] 08/09/2024 Ambulatory Low back pain, unspecified Low back pain, unspecified [facility] 08/09/2024 Ambulatory Low back pain, unspecified Low back pain, unspecified [facility] 06/20/2024 Ambulatory Other mechanical complication of internal fixation device of vertebrae, subsequent encounter Other mechanical complication of internal fixation device of vertebrae, subsequent encounter [facility] 06/03/2024 Ambulatory [facility] 03/02/2024 Ambulatory Pain, unspecified [facility] 08/26/2022 Ambulatory Pain, unspecified [facility] 08/26/2022 Inpatient Other mechanical complication of internal fixation device of vertebrae, initial encounter [facility] 08/16/2022 Ambulatory Encounter for ot her preprocedural examination [facility] 08/05/2022 Care Team Organization Name Specialty Phone Email Start Date End Piotr morris [facility] 08/09/2024 [facility] VEE HERNÁNDEZ Primary [facility] 08/05/2022 [facility] Liliane Hernández [facility] 08/03/2022 08/03/2022 [facility]
--- OUTSIDE RECORDS SUMMARY | 2024-08-20 08:00 | XMS_ITS | Clinical Summary ---
Author Organization [facility] Address [address] [place] [address] Care Team Providers Care Hoop Maker Name Role Phone Liliane Benitez MD Primary Care Provider [phone] Soham Zamarripa MD Unavailable [phone] Jacklyn Lehman PT Unavailable [phone] Lay[address] Unavailable [phone] Allergies Active Allergy Reactions Criticality Noted Date [...] Take 1 tablet by mouth every morning. 3 Active amphetamine-dext roamphetamine (ADDERALL) 5 MG tablet 2 (two) times a day. 3 Active OMEprazole (PriLOSEC) 20 MG capsule Take 1 capsule (20 mg total) by mouth every morning before breakfast. Active ondansetron (ZOFRAN) 4 MG tablet Take 1 tablet (4 mg total) by mouth. 3 Active oxyCODONE (ROXICODONE) 5 MG immediate release tabletIndication s:Other mechanical complication of internal fixation device of vertebrae, initial encounter Take 1-2 tablets (5-10 mg total) by mouth every 4 (four) hours as needed for severe pain. Take 1-2 tabs by mouth every 4-6 hours as needed for pain. This is a 1 week supply. Max Daily Amount: 60 mg 40 tablet 3 Active losartan (COZAAR) 50 MG tablet Take 1 tablet (50 mg total) by mouth daily. 4 Active diclofenac enteric coated (VOLTAREN) 50 MG EC tabletIndication s:Tendinopathy of right gluteus medius Take 1 tablet (50 mg total) by mouth 2 times daily (every 12 hours) as needed (pain). Administer with food avoid GI upset. 60 tablet 5 Active methocarbamol (ROBAXIN) 750 MG tabletIndication s:Tendinopathy of right gluteus medius Take 1 tablet (750 mg total) by mouth 3 times daily (every 8 hours) as needed for muscle spasms. 90 tablet 5 Active Additional Information Patient not taking.Reported on 08/09/2024 inFLIXimab-dyyb (INFLECTRA IV) Infuse into a venous catheter. Active Active Problems Problem Noted Date Diagnosed [...] organization. Date Type Department Care Team Description 08/19/2024 Refill [facility] [address] [phone] Peña Lei MD Tendinopathy of right gluteus medius 08/14/2024 Refill [facility] [address] [phone] Pñea Lei MD Tendinopathy of right gluteus medius 08/09/2024 12:35 PM EDT Ancillary Procedure [facility] [address] [facility] [place] [address] Provider, File Room 08/09/2024 12:30 PM EDT Ancillary Procedure [facility] [address] [facility] [place] [address] Provider, File Room 08/09/2024 12:25 PM EDT Ancillary Procedure [facility] [address] [facility] [place] [address] Provider, File Room 08/09/2024 12:20 PM EDT Ancillary Procedure [facility] [address] [place] [address], [place] [address] Provider, File Room 08/09/2024 12:15 PM EDT Ancillary Procedure [facility] [address] [place] [address], [place] [address] Provider, File Room 08/09/2024 11:40 AM EDT Office Visit [facility] [address] [phone] Peña Lei MD Chronic bilateral low back pain without sciatica (Primary Dx); Tendinopathy of right gluteus medius; History of fusion of lumbar spine; Chronic pain syndrome 08/09/2024 Documentation [facility] [id number] [place] [address] Jacklyn Lehman, PT 08/09/2024 Travel 08/05/2024 Travel 07/18/2024 Telephone [facility] [address] [phone] Peña Lei MD Medical Complaint 07/16/2024 Travel 06/27/2024 Telephone [facility] [address] [place] [phone] Liliane Benitez MD Appointment 06/21/2024 Documentation [facility] [id number] [place] [address] Jacklyn Lehman, ANNETTE 06/21/2024 Orders Only [facility] [address] [address] Jacklyn Lehman, PT Chronic bilateral low back pain without sciatica (Primary Dx); Tendinopathy of right gluteus medius; History of fusion of lumbar spine; Chronic pain syndrome 06/21/2024 Telephone [facility] [address] [phone] Peña Lei MD Advice Only 06/20/2024 11:15 AM EDT Office Visit [facility] [address] [phone] Peña Lei MD Chronic bilateral low back pain without sciatica (Primary Dx); Tendinopathy of right gluteus medius 06/20/2024 Travel 06/17/2024 Orders Only [facility] [address] [phone] Johan Haile MD Post traumatic stress disorder (PTSD) (Primary Dx); History of fusion of lumbar spine; Chronic pain syndrome 06/04/2024 Telephone [facility] & [facility] [address] [place] [phone] Susan Blackman MA 06/04/2024 Orders Only [facility] [address] [phone] Susan Blackman MA 06/04/2024 Orders Only [facility] [address] [phone] Vicki Funes MD 06/03/2024 12:00 PM EDT Telemedicine Physical Medicine and Rehab [address] [phone] Johan Haile MD Other mechanical complication of internal fixation device of vertebrae, subsequent encounter (Primary Dx); Post traumatic stress disorder (PTSD); Attention deficit hyperactivity disorder (ADHD), unspecified ADHD type; Tobacco use; History of fusion of lumbar spine 06/03/2024 Telephone [facility] [address] [phone] Susan Blackman MA 06/03/2024 Travel 06/03/2024 Orders Only Physical Medicine and Rehab [facility] [address] [place] [address] Provider, MD Vicki from Last 3 Months [...] more drinks on one occasion? Never 08/01/2022 [facility] of Occupat ional Health - Occupational Stress [...] Info) Description 08/22/2024 9:00 AM EDT Evaluation [address] [phone] Peña Lei MD [address] [address] [place], PT [address] [address] 09/25/2024 11:20 AM EDT Office Visit [facility] [address] [phone] Peña Lei MD 2 [facility] [address] [place] [address] Health Maintenance Due Date Last Done Comments [...] resultswithin the time period is included. Narrative [place] - 08/09/2024 12:15 PM EDT This study has been auto finalized and does not contain a result. us File Room Provider IMG DIGITIZE FILMS Final Resu lt Performing Organization Address [facility] Phone Number JAMA [phone] * MR Spine Archive for Reference Only (08/09/2024 12:15 PM EDT) Only the most recent of2 resultswithin the time period is included. Narrative [place] - 08/09/2024 12:15 PM EDT This study has been auto finalized and does not contain a result. us File Room Provider IMG DIGITIZE FILMS Final Resu lt Performing Organization Address [facility] Phone Number JAMA [phone] * MR Abdomen Archive for Reference Only (08/09/2024 12:13 PM EDT) Narrative [facility] 08/09/2024 12:13 PM EDT This study has been auto finalized and does not contain a result. us File Room Provider IMG DIGITIZE FILMS Final Resu lt Performing Organization Address [facility] Phone Number JAMA [phone] * T-Spot?? TB (06/04/2024 12:28 PM EDT) Blood Blood specimen / Unknown us External Provider LAB BLOOD ORDERABLES Final Result * WBC (06/04/2024 10:20 AM EDT) Blood Blood specimen / Unknown us External Provider LAB BLOOD ORDERABLES Final Result * HC MRI PELVIS W/O & W/CONTRAST MATERIAL (06/03/2024 11:42 AM EDT) us External Provider MD HB CHARGEABLES Final Resul t * MRI Lumbar spine w w/o contrast (06/03/2024 11:40 AM EDT) Anatomical Region Laterality Modality L-spine Magnetic Resonan ce us External Provider MD CLEMENTE MRI ORDERABLES Final Re sult from Last 3 Months Insurance [id number] [place] [phone] [place] [address] Advance Directives * Full Code (Latest Code Status on File) Date Activated Date Inactivated Comments 08/16/2022 2:18 PM * Full Code Date Activated Date Inactivated Comments 08/16/2022 7:15 AM 08/16/2022 2:18 PM Care Teams Hoop Maker Relationship Specialty Start Date End Date Liliane Benitez MD [address] [place] [address] PCP - General Internal Medicine 08/01/22 Soham Zamarripa MD 31 [facility] [address] [place] [address] Surgery, Orthopedic 08/02/22 Jacklyn Lehman, PT 85 [facility] [address] [place] [address] Motorcycle Delivery DriverCover Inspector Medicine and Rehabilitation 06/10/24 Mich La PsyD [address] [place] [address] Clinical Psychologist Psychology 08/05/24
== END 2024-08-20 08:35 | disposition home or self-care (01) ==
LOC: HO.RHES 07:57
PROVIDERS: PCP Internal Medicine; Visit Provider Internal Medicine Rheumatology
DX: D86.86 Sarcoid arthropathy (principal); M79.7 Fibromyalgia; M70.61 Trochanteric bursitis, right hip; M70.62 Trochanteric bursitis, left hip; M47.816 Spondylosis without myelopathy or radiculopathy, lumbar region; Z79.899 Other long term (current) drug therapy
CPT/HCPCS: 99214

== ENCOUNTER 2024-08-27 08:31 | Outpatient (REF) | payer OTHER, SELFPAY ==
--- OUTSIDE RECORDS SUMMARY | 2024-08-27 08:41 | XMS_ITS | Clinical Summary ---
Author Organization [facility] Address [address] [place] [address] Care Team Providers Care Judo Instructor Name Role Phone Liliane Benitez MD Primary Care Provider [phone] Soham Zamarripa MD Unavailable [phone] Jacklyn Lehman PT Unavailable [phone] Mich LayD Unavailable [phone] Allergies Active Allergy Reactions Criticality Noted Date [...] total) by mouth daily. 01/01/20 24 Active methocarbamol (ROBAXIN) 750 MG tabletIndicatio ns:Tendinopathy of right gluteus medius Take 1 tablet (750 mg total) by mouth 3 times daily (every 8 hours) as needed for muscle spasms. 90 tablet 07/24/19 25 Active Additional Information Patient not taking.Reported on 08/09/2024 inFLIXimab-dyyb (INFLECTRA IV) Infuse into a venous catheter. Active meloxicam (MOBIC) 7.5 MG tabletIndicatio ns:Chronic bilateral low back pain without sciatica,Tendin opathy of right gluteus medius,Chronic pain syndrome Take 1 tablet (7.5 mg total) by mouth daily as needed (pain). 30 tablet 08/27/19 25 025 Active diclofenac enteric coated (VOLTAREN) 50 MG EC tabletIndicatio ns:Tendinopathy of right gluteus medius Take 1 tablet (50 mg total) by mouth 2 times daily (every 12 hours) as needed (pain). Administer with food avoid GI upset. 60 tablet 07/19/19 25 025 Discontinued Active Problems Problem Noted Date [...] organization. Date Type Department Care Team Description 08/26/2024 Telephone [facility] at [address] [phone] Peña Lei MD Advice Only 08/22/2024 9:00 AM EDT Evaluation [address] [place] [address] Peña Lei MD [place], [place], PT Chronic bilateral low back pain without sciatica (Primary Dx); Tendinopathy of right gluteus medius; Difficulty walking; Muscle weakness 08/22/2024 Travel 08/19/2024 Refill [facility] at [address] [phone] Peña Lei MD Tendinopathy of right gluteus medius 08/14/2024 Refill [facility] at [address] [phone] Peña Lei MD Tendinopathy of right gluteus medius 08/09/2024 12:35 PM EDT Ancillary Procedure [facility] [address] [place] [phone] Provider, File Room 08/09/2024 12:30 PM EDT Ancillary Procedure [facility] [address] [place] [phone] Provider, File Room 08/09/2024 12:25 PM EDT Ancillary Procedure [facility] [address] [place] [phone] Provider, File Room 08/09/2024 12:20 PM EDT Ancillary Procedure [facility] [address] [place] [phone] Provider, File Room 08/09/2024 12:15 PM EDT Ancillary Procedure [facility] [address] [place] [phone] Provider, File Room 08/09/2024 11:40 AM EDT Office Visit [facility] at [address] [phone] Peña Lei MD Chronic bilateral low back pain without sciatica (Primary Dx); Tendinopathy of right gluteus medius; History of fusion of lumbar spine; Chronic pain syndrome 08/09/2024 Documentation [facility] Physical Medicine and Re[facility] [place] [address] [address] [place] [address] Jacklyn Lehman, PT 08/09/2024 Travel 08/05/2024 Travel 07/18/2024 Telephone [facility] at [address] [phone] Peña Lei MD Medical Complaint 07/16/2024 Travel 06/27/[address] [phone] Liliane Benitez MD Appointment 06/21/2024 Documentation [facility] [place] [address] [address] [place] [phone] Jacklyn Lehman, PT 06/21/2024 Orders Only [facility] [address] [phone] Jacklyn Lehman, PT Chronic bilateral low back pain without sciatica (Primary Dx); Tendinopathy of right gluteus medius; History of fusion of lumbar spine; Chronic pain syndrome 06/21/2024 Telephone [facility] at [address] [phone] Peña Lei MD Advice Only 06/20/2024 11:15 AM EDT Office Visit [facility] at [address] [phone] Peña Lei MD Chronic bilateral low back pain without sciatica (Primary Dx); Tendinopathy of right gluteus medius 06/20/2024 Travel 06/17/2024 Orders Only [facility] Rehab [address] [phone] Johan Haile MD Post traumatic stress disorder (PTSD) (Primary Dx); History of fusion of lumbar spine; Chronic pain syndrome 06/04/2024 Telephone [facility] [address] [facility] [address] [place] [phone] Susan Blackman MA 06/04/2024 Orders Only [facility] [address] [facility] [address] [place] [phone] Susan Blackman MA 06/04/2024 Orders Only [facility] [address] [facility] [address] [place] [phone] ProviderVicki MD 06/03/2024 12:00 PM EDT [facility] [address] [phone] Johan Haile MD Other mechanical complication of internal fixation device of vertebrae, subsequent encounter (Primary Dx); Post traumatic stress disorder (PTSD); Attention deficit hyperactivity disorder (ADHD), unspecified ADHD type; Tobacco use; History of fusion of lumbar spine 06/03/2024 [facility]phone [facility] [address] [phone] Susan Blackman MA 06/03/2024 Travel 06/03/2024 Orders Only [facility] [address] [phone] Vicki Funes MD from Last 3 Months Family History Medical [...] more drinks on one occasion? Never 08/01/2022 [facility] [place] - Occupational Stress Questionnaire Answer Date Recorded [...] Care Team (Late st Contact Info) Description 09/03/2024 11:00 AM EDT Treatment [facility]- [address] ALISSA Flores [phone] Russell, Dayami, CORPORATE ADMINISTRATIVE ASSISTANT [address] [place] [address] 09/05/2024 11:30 AM EDT Treatment [facility]- [place] [address] [place] [address] Russell, Dayaim, CORPORATE ADMINISTRATIVE ASSISTANT [address] [place] [address] 09/10/2024 10:00 AM EDT Treatment [facility]- [place] [address] [place] [phone] Russell, Dayami, CORPORATE ADMINISTRATIVE ASSISTANT [address] [place] [address] 09/12/2024 9:30 AM EDT Treatment [facility]- [place] [address] [place] [phone] Russell, Dayami, CORPORATE ADMINISTRATIVE ASSISTANT [address] [place] [address] 09/17/2024 10:00 AM EDT Treatment [facility]- [place] [address] [place] [address] Russell, Dayami, CORPORATE ADMINISTRATIVE ASSISTANT [address] [place] [address] 09/19/2024 11:00 AM EDT Treatment [facility]- [place] [address] [place] [address] Russell, Dayami, CORPORATE ADMINISTRATIVE ASSISTANT [address] [place] [address] 09/24/2024 9:30 AM EDT Treatment [facility]- [place] [address] [place] [address] Russell, Dayami, CORPORATE ADMINISTRATIVE ASSISTANT [address] [place] [address] 09/25/2024 11:20 AM EDT Office Visit [facility] at [address] [phone] Peña Lei MD [address] [address] 09/26/2024 9:30 AM EDT Treatment [facility]- [place] [address] [place] [phone] Dayami Wells, CORPORATE ADMINISTRATIVE ASSISTANT [address] [place] [address] Health Maintenance Due Date Last Done Comments Hepatitis C Virus Screening 1973 Quantiferon Gold TB 11/02/1983 HIV Screening 1986 DTaP/Tdap/Td Vaccines (1 - Tdap) 1992 Hepatitis B Vaccines (1 of 3 - 19+ 3-dose series) 1992 Pneumococcal Vaccines 50+ (1 of 2 - PCV) 1992 Zoster (Shingles) Vaccine (1 of 2) 1992 Pap Smear (Ages 21-65) 1994 Mammogram 2013 Colonoscopy 2018 COVID-19 Vaccine (4 - 2023-2 5 season) 2023 02/18/2021, 04/28/2020, 04/11/2020 Influenza Vaccine 09/20/2024 02/03/2023, , 03/23/2021, Additional history exists Chronic Controlled Substance User PDMP Review Discontinued 07/28/2022 Goals Goal Patient Goal Type Associated Problems Recent Progress Patient-Stated? Author PT STGs Physical Therapy No Mili South, PT Note: In 4 wks... Pt with resting pain <5/10 Pt will be able to juju sitting x10min without inc sx Pt reporting reduced frequency of numbness in LEs Pt able to juju x30min exercise in pool Pt with EL strength improved >4-/5 in all planes PT LTGs Physical Therapy No Mili [place], PT Note: In 8 wks... Pt able to juju standing x20min without inc sx for ADL completion Pt with resting pain <3/10 and able to sleep through the night Pt able to perform STS x10 without inc sx Pt PROMIS score improved to 64 pts (MCID) Pt I in HEP Procedures Procedure Name Priority Date/Time Associated Diagnosis [...] resultswithin the time period is included. Narrative [facility] - 08/09/2024 12:15 PM EDT This study has been auto finalized and does not contain a result. us File Room Provider IMG DIGITIZE FILMS Final Resu lt JAMA [phone] * MR Spine Archive for Reference Only (08/09/2024 12:15 PM EDT) Only the most recent of2 resultswithin the time period is included. Danya [facility] 08/09/2024 12:15 PM EDT This study has been auto finalized and does not contain a result. us File Room Provider IMG DIGITIZE FILMS Final Resu lt Performing Organization Address City/[facility]/ZIP Co de Phone Number JAMA [phone] * MR Abdomen Archive for Reference Only (08/09/2024 12:13 PM EDT) Narrative JAMA - 08/09/2024 12:13 PM EDT This study has been auto finalized and does not contain a result. us File Room Provider IMG DIGITIZE FILMS Final Resu lt Performing Organization Address [facility]/ZIP Co de Phone Number JAMA [phone] * T-Spot?? TB (06/04/2024 12:28 PM EDT) Blood Blood specimen / Unknown External Provider LAB BLOOD ORDERABLES Final Result * WBC (06/04/2024 10:20 AM EDT) Blood Blood specimen / Unknown External Provider LAB BLOOD ORDERABLES Final Result * HC MRI PELVIS W/O & W/CONTRAST MATERIAL (06/03/2024 11:42 AM EDT) External Provider HB CHARGEABLES Final Resul t * MRI Lumbar spine w w/o contrast (06/03/2024 11:40 AM EDT) Anatomical Region Laterality Modality L-spine Magnetic Resonan ce External Provider IMG MRI ORDERABLES Final Re sult from Last 3 Months Insurance [facility] Advance Directives * Full Code (Latest Code Status on File) Date Activated Date Inactivated Comments 08/16/2022 2:18 PM * Full Code Date Activated Date Inactivated Comments 08/16/2022 7:15 AM 08/16/2022 2:18 PM Care Teams Judo Instructor Relationship Specialty Start Date End Date Liliane Benitez MD [address] [place] [address] PCP - General Internal Medicine 08/01/22 Soham Zamarripa MD [address] [place] [address] Surgery, Orthopedic 08/02/22 Jacklyn Lehman, PT [address] [address] Exterior Door InstallerBlocker Polishing Medicine and Rehabilitation 06/10/24 Mich La PsyD [address] [place] [address] Clinical Psychologist Psychology 08/05/24
--- OUTSIDE RECORDS SUMMARY | 2024-08-27 08:41 | XMS_ITS | Data Portability ---
Author Organization [facility] [address] Address [address] [place] [address] Assessment No assessment recorded. Plan of Treatment Reminders Order Date Submit Date Provider Last Modified By Organization Details Last Modified Time Details Appointments None recorded. Lab rapid flu (A+B) 2024 025 [email or web address] _[facility], [address] [place] [address], [phone], 5 09:04:56 SARS CoV 2 (COVID-19) Ag, QL, [place], upper respiratory specimen 2024 025 [email or web address] _[facility], [address] [place], [phone], 5 09:04:56 Referral None recorded. Procedures None recorded. Surgeries None recorded. Imaging None recorded. Medication Orders albuterol sulfate HFA 90 mcg/actuati on aerosol inhaler 2024 025 [facility][id number], [address] [place], [address], 5 09:04:59 Flonase Sensimist 27.5 mcg/actuati on nasal spray,suspe nsion 2024 025 [facility]armacy #[id number], [address] [place], [address], 5 09:04:58 prednisone 20 mg tablet 2024 025 [facility]armacy #[id number], [address] [facility], [place], [address], 09:06:29 Patient TargetsNo targets recorded. Patient InstructionsNo instructions recorded. Reason for Referral None Reported. Results Created Date Observation Date Name Description Value Unit Range Abnormal Flag Note LastModifiedBy Organization Detail LastModifiedTime 03/02/1903/02/2024 SARS CoV 2 (COVI D-19) Ag, QL, [place], upper respi rator y speci men Unknown Analyte negati ve Not Available 2099_[facility] [address] [place] [address], [phone], 03/02/2024 08:38:52 03/02/1903/02/2024 rapid flu (A+B) Unknown Analyte negati ve Not Available [facility] [address] [place] [address], [phone], 03/02/2024 08:38:44 03/02/1903/02/2024 rapid flu (A+B) Unknown Analyte negati ve Not Available [facility] [address] [place] [address], [phone], 03/02/2024 08:38:44 Result Notes None recorded. Problems Name Problem SNOMED Code Status Onset Date Resolution Date Notes Provider Name and Address Organization Details Recorded Time Autoinflammator y disease Active Bety O'Bruno null, PA - [facility] 08:35:52 Heartburn 68084610 Active Bety O'Bruno null, PA - [facility] 5 08:36:10 Hypertensive disorder 75725018 Active Bety O'Bruno null, [facility] - [facility] [...] Pulse oximetry Heart rate Body temperature Systolic And Diastolic Provider Name and Address Organization Details Last Updated DateTime 5 172.72 cm 25.8 kg/m2 95176.7 g 99 % 99 % 94 /min 98.4 [degF] 144/95 mm[Hg] Bety Acosta PA - [facility] 08:28:44 Social History Question Answer Notes LastModified by [employer] ion Details LastModified Time Tobacco Smoking Status Current Every Day Smoker Bety franklin, PA - [facility] 03/02/2024 08:37:31 Which [...] Functional Status Question Answer Note LastModified by [employer] ion Details LastModified Time How many times per [...] SNOMED-CT Code Diagnosis ICD10 Code Diagnosis Note [id number] [facility] [address] [phone] 02/01/2021 08:01:38 02/01/2021 09:22:31 [id number] [facility] [address] [place] [phone] 12/08/2020 08:02:35 12/08/2020 08:42:03 [id number] [facility] [address] [place] [phone] 08/26/2019 10:06:07 08/26/2019 10:50:27 [id number] Facundo Reyes DO [facility] [address] [place] [phone] 03/02/2024 08:20:22 03/02/2024 09:09:34 Viral respiratory infection 975415495 J06.9 Viral infectionR ecommend plenty of fluidsnasa [...] Paz Member ID Guarantor Name 03/02/2024 1 [facility] Brittany [place] [id number] Edwige [place] 03/02/2024 1 [employer] [place] [facility] [id number] Edwige [place] [id number] Edwige [place] Notes Date Note Type Note Provider Name and Address Organization Details Recorded Time 03/02/2024 text/html CoughReported bypatient.Notes:48 yo female c/o cough and congestion x+ fever Tmax 100last [facility] + exposure to RSV+ h/o sarcoid - on remicaidno asthma+ smoker No chillsNo nauseaNo vomitingNo wheezeNo difficulty breathing or respiratory distressNo CPNo sinus painNo ear painNo sore throatNo Abdominal painNo diarrheaNo myalgiaNo fatigueNo rashNo HANo dizzinessNo recent travel Facundo Reyes, DO [facility] [address], [place], [phone], PA - [facility] 03/02/2024 09:07:21 OBGyn Episode No OBEpisode recorded.
[2024-08-27 15:20] LABS: Baso%MD 0.4 %; Eos%MD 1.5 %; Hematocrit 43.7 % (37.0-47.0); Hemoglobin 14.8 g/dl (12.0-16.0); IG%MD 0.4 %; Lymph%MD 30.9 %; Mean Corpuscular HGB Conc 33.9 g/dl (31.0-35.0); Mean Corpuscular Hemoglobin 31.7 pg (27.0-33.0); Mean Corpuscular Volume 93.6 fL (80.0-98.0); Mono%MD 11.7 %; NRBC Abs Auto 0.000 X10*3/uL (0.0-0.012); NRBC Pct Auto 0.0 /100WBC (0.0-0.2); Neut%MD 55.1 %; Platelet Count 256 X10*3/uL (160-400); Red Blood Count 4.67 X10*6/uL (4.20-5.50); White Blood Count 7.5 X10*3/uL (4.8-10.8)
[2024-08-27 15:32] LABS: Alanine Aminotransferase 44 U/L (0-31); Aspartate Amino Transferase 51 U/L (5-31); Estimated Glomerular Filt Rate > 60
[2024-08-27 16:42] LABS: Acanthocytes 2+ (3-5) /OIF; Burr Cells 3+ (>5) /OIF; Eosinophils Absolute Manual 0.2 X10*3/uL (0.0-0.4); Eosinophils Percent Manual 3 % (0-4); Lymphocytes Absolute Manual 2.3 X10*3/uL (1.2-4.9); Lymphocytes Percent Manual 31 % (20-40); Monocytes Absolute Manual 0.6 X10*3/uL (0.1-1.2); Monocytes Percent Manual 8 % (2-11); Neutrophils Percent Manual 58 % (45-73); RBC Morphology NOTED
[2024-08-27 17:05] LABS: Band Neutrophils Percent 0 % (3-5); Neutrophils Absolute Manual 4.4 X10*3/uL (2.0-8.3)
== END 2024-08-27 08:32 | disposition home or self-care (01) ==
LOC: HO.HKASLDS 08:31
PROVIDERS: Internal Medicine Rheumatology; Visit Provider Internal Medicine Nephrology
DX: Z79.899 Other long term (current) drug therapy (principal)
CPT/HCPCS: 36415; 82565; 84450; 84460; 85007; 85027; 85652; 86140